=== PATIENT | male | born 1940 | race Caucasian/White ===

== ENCOUNTER 2016-06-10 13:00 | Emergency (ER) | payer MEDICARE ==
[2016-06-10 13:30] VITALS: RESP 18
--- NOTE | 2016-06-10 13:45 | ED ---
ENT HPI - General Chief complaint: ENT Stated complaint: FB in throat Time Seen by Provider: 06/10/16 13:28 Source: patient, RN notes reviewed Mode of arrival: ambulatory Limitations: no limitations - History of Present Illness Initial comments: This is a 76-year-old male who states he was flossing his teeth from the tip of the floss mechanism he was using broke off. He thought he got caught in his throat he coughed quite heavily in fact hard enough to cause a small amount of bleeding. He denies any sore throat difficulty swallowing shortness of breath chest pain or other symptoms. MD complaint: foreign body Review of Systems ROS Statement: Those systems with pertinent positive or pertinent negative responses have been documented in the HPI. ROS Other: All systems not noted in ROS Statement are negative. Past Medical History Past Medical History: No Reported History History of Any Multi-Drug Resistant Organisms: None Reported Additional Past Surgical History / Comment(s): Hernia repair. Past Psychological History: No Psychological Hx Reported Smoking Status: Never smoker Past Alcohol Use History: Daily Past Drug Use History: None Reported General Exam - General Exam Comments Initial Comments: This is a well-developed well-nourished awake alert oriented 3 male Limitations: no limitations General appearance: alert, in no apparent distress Head exam: Present: atraumatic, normocephalic, normal inspection Eye exam: Present: normal appearance ENT exam: Present: normal exam, mucous membranes moist Neck exam: Present: normal inspection, other (Stridor JVD or bruits). Absent: tenderness, meningismus, lymphadenopathy Respiratory exam: Present: normal lung sounds bilaterally. Absent: respiratory distress, wheezes, rales, rhonchi, stridor Extremities exam: Present: normal inspection, full ROM, normal capillary refill. Absent: tenderness, pedal edema, joint swelling, calf tenderness Back exam: Absent: tenderness Neurological exam: Present: alert, oriented X3, CN II-XII intact Psychiatric exam: Present: normal affect, normal mood Skin exam: Present: warm, dry, intact, normal color. Absent: rash Course Vital Signs 06/10/16 13:24 Temperature 97 F L Pulse Rate 78 Respiratory 18 Rate Blood Pressure 169/83 O2 Sat by Pulse 97 Oximetry - Reevaluation(s) Reevaluation #1: 06/10/16 13:49 I had reevaluated the patient he was still dyspneic. He is having some occasional PVCs this chest tightness has resolved however. Medical Decision Making - Medical Decision Making Reevaluation patient reveals a history of short of breath he will be admitted I did discuss the case with Dr. Kelly. Dr. Dinh/Barbra castillo will be consulted - Radiology Data Radiology results: report reviewed (I did review the imaging and reports no acute findings.), image reviewed Critical Care Time Critical Care Time: Yes Critical Care Time: 32 minutes of critical care time which includes initial monitoring of the patient with history physical lab and x-rays reevaluation the patient on several occasions discuss with the patient family regarding findings discussed with the admitting physician. Admission orders documentation the above. Disposition Clinical Impression: Chronic obstructive pulmonary disease with acute exacerbation, Exertional dyspnea Disposition: ADMITTED IP TO THIS [facility] Condition: Stable
--- NOTE | 2016-06-10 13:58 | XR ---
EXAMINATION TYPE: XR chest 2V DATE OF EXAM: 06/10/2016 1:54 PM COMPARISON: NONE HISTORY: Dental injury with cough. TECHNIQUE: Frontal and lateral views of the chest are obtained. FINDINGS: There is no focal air space opacity, pleural effusion, or pneumothorax seen. The cardiac silhouette size is within normal limits. A few Rina B lines are suspected in the periphery of the l eft lung. There is slightly ectatic thoracic aorta. The osseous structures are intact. IMPRESSION: Perhaps mild interstitial edema but no suspicious focal infiltrate.
--- NOTE | 2016-06-10 14:46 | ED ---
Medical Decision Making - Medical Decision Making I did review the x-rays no acute findings. I did a long discussion with the patient's the small foreign object should pass without difficulty. Patient is totally asymptomatic at this time. He does play the troponin he was advised to give his throat or respiratory day or so. He is return if any problems otherwise follow-up with his doctor. Disposition Clinical Impression: Foreign body ingestion Disposition: HOME SELF-CARE Condition: Good Instructions: Foreign Body Ingestion (ED) Referrals: Omari Ceja DO [Primary Care Provider] - 1-2 days
--- NOTE | 2016-06-10 14:48 | XR ---
EXAMINATION TYPE: XR soft tissue neck DATE OF EXAM ORDERED: 06/10/2016 1:54 PM HISTORY: Pain. COMPARISON: None. FINDINGS: Soft tissue views of the neck are normal. Prevertebral soft tissues are normal. The epiglo ttis is normal. There is degenerative disc disease and hypertrophic spondylosis within the spine. IMPRESSION: 1. NORMAL SOFT TISSUE VIEWS OF THE NECK. 2. DEGENERATIVE CHANGES IN THE CERVICAL SPINE.
[2016-06-10 15:11] VITALS: BP 126/69; PULSE 74; TEMP 97
[2016-06-10] MEDS ORDERED: IPRATROPIUM-ALBUTEROL 3 ML NEB INHALATION SCH (16:00)
[2016-06-10] MEDS ORDERED: methylPREDNISolone SOD SUCCI 125 MG/2 ML VIAL IV SCH (18:00)
== END 2016-06-10 15:10 | disposition home or self-care (01) ==
LOC: EC 13:00
DX: T18.9XXA Foreign body of alimentary tract, part unspecified, initial encounter (principal); X58.XXXA Exposure to other specified factors, initial encounter
CPT/HCPCS: 36415; 70360; 71020; 84484; 99283

== ENCOUNTER → 2017-01-24 | Outpatient (CLI) | payer MEDICARE ==
--- NOTE | 2017-01-24 15:00 | XR ---
EXAMINATION TYPE: XR lumbar spine 2 or 3V DATE OF EXAM: 01/24/2017 CLINICAL HISTORY: Chronic low back pain TECHNIQUE: Frontal and lateral images of the lumbar spine are obtained. COMPARISON: None FINDINGS: There are 5 lumbar type vertebral bodies identified. There is a mild rotatory levoscolioti c curvature of the lumbar spine with apex at L3-L4. Lumbar vertebral body heights maintain normal ali gnment. There is grade 1 anterolisthesis of L4 on L5 and mild retrolisthesis of L3 with respect to L4 . Multilevel intervertebral disc space during, endplate sclerosis, facet arthropathy and small anteri or osteophytes are noted most exaggerated at L3-L4 and L4-L5. The overlying soft tissue appears unre markable. There is incidental note of a 4 mm right renal calculus. IMPRESSION: 1. No acute fracture or dislocation is seen in the lumbar spine. 2. Mild rotatory levoscoliotic curvature of the lumbar spine. 3. Grade 1 anterolisthesis of L4 on L5 and slight retrolisthesis of L3 with respect to L4. 4. Mild multilevel degenerative disc disease of the lumbar spine. 5. Incidentally noted 4 mm right renal calculus.
--- NOTE | 2017-01-24 15:02 | XR ---
EXAMINATION TYPE: XR thoracic spine complete DATE OF EXAM: 01/24/2017 CLINICAL HISTORY: Chronic back pain. TECHNIQUE: Frontal, lateral, and swimmer's view of thoracic spine are obtained. COMPARISON: None. FINDINGS: Thoracic spine show satisfactory alignment without evidence of acute fracture or dislocatio n. Multilevel moderate degenerative disc disease is demonstrated as anterior flowing bridging osteoph ytes and multilevel intervertebral disc space narrowing. There is also mild generalized osseous demin eralization.. Visualized ribs are unremarkable. IMPRESSION: No acute fracture or malalignment is seen in the thoracic spine. Moderate multilevel dege nerative disc disease of the thoracic spine.
== END ==
LOC: RADXRMAIN 13:59
PROVIDERS: ATTEND Internal Medicine Geriatric Medicine
DX: M43.16 Spondylolisthesis, lumbar region (principal); M51.36 Other intervertebral disc degeneration, lumbar region; M41.86 Other forms of scoliosis, lumbar region; M51.34 Other intervertebral disc degeneration, thoracic region
CPT/HCPCS: 72072; 72100

== ENCOUNTER → 2018-01-09 | Outpatient (CLI) | payer MEDICARE ==
--- NOTE | 2018-01-09 13:52 | MR ---
EXAMINATION TYPE: MR brain wo con DATE OF EXAM: 01/09/2018 COMPARISON: NONE HISTORY: Dizziness and giddiness TECHNIQUE: Multiplanar, multisequence images of the brain and brainstem is performed without contrast. FINDINGS: Diffusion weighted images demonstrate no evidence of a recent infarct or other diffusion ab normality. There is no extra-axial fluid collection. There are few scattered areas of T2/FLAIR hyper intensity within the subcortical and periventricular white matter, more confluent within the perivent ricular white matter. There is also a punctate focus within the right cerebral peduncle. Findings are likely on the basis of chronic microangiopathy. No vasogenic edema is seen. The ventricular system a nd cisternal spaces are symmetrically prominent compatible with mild age-related volume loss. No felipe sependymal edema or hydrocephalus. Midline structures demonstrate normal morphology. The craniocervical junction appears within normal limits. The dural venous sinuses appear patent. The visualized sinuses display moderate mucosal thick ening within the frontal sinuses and mild within the ethmoid sinuses. Remaining visualized paranasal sinuses and mastoid air cells are well aerated. Globes are symmetric. No cerebellar pontine angle mas s is seen. Major intracranial flow voids are maintained. IMPRESSION: 1. No acute infarct, midline shift or mass effect. 2. Moderate mucosal thickening within the frontal sinuses and mild within the ethmoid sinuses relatin g to sinusitis. 3. Mild burden nonspecific white matter change given the patient's age, most commonly on the basis of chronic microangiopathy. There is mild age-related supratentorial and infratentorial volume loss.
== END | disposition home or self-care (01) ==
LOC: RADMRIMAIN 12:37
PROVIDERS: ATTEND Family Medicine
DX: R90.82 White matter disease, unspecified (principal); R90.89 Other abnormal findings on diagnostic imaging of central nervous system; R42 Dizziness and giddiness
CPT/HCPCS: 70551

== ENCOUNTER → 2018-06-20 | Outpatient (CLI) | payer MEDICARE ==
--- NOTE | 2018-06-20 13:54 | MR ---
EXAMINATION TYPE: MR lumbar spine wo/w con DATE OF EXAM: 06/20/2018 COMPARISON: Plain film 01/24/2017 HISTORY: Low back pain TECHNIQUE: Multiplanar, multisequence images of the lumbar spine were acquired utilizing [address] gadolinium contrast. T12-L1: Circumferential extension of endplate disc complex results in some foraminal encroachment gre ater on the left. There is mild anterior mass effect on the thecal sac. Facet arthropathy causes post erior lateral mass effect on the thecal sac. No significant central stenosis. L1-L2: Posterior broad-based disc bulge causes mild anterior mass effect on the thecal sac. No signif icant central stenosis. There may be some mild sided foraminal encroachment due to circumferential ex tension endplate disc complex. L2-L3: Posterior extension of endplate disc complex causes mild anterior mass effect on the thecal sa c. No significant central stenosis. Hypertrophic change of the ligamentum flavum greater on the right causes some posterior lateral mass effect on the thecal sac, circumferential extension endplate disc complex results in some foraminal encroachment greater on the. L3-L4: Posterior broad-based disc bulge causes mild anterior mass effect on the thecal sac, no signif icant central stenosis. Facet arthropathy with hypertrophic change of the ligamentum flavum causes po sterior lateral mass effect on the thecal sac, no significant foraminal encroachment on the right, so me mild left-sided foraminal encroachment is present. L4-L5: There is facet arthropathy change, hypertrophic ligamentum flavum causes some posterior latera l mass effect on the thecal sac and circumferential posterior disc bulge causes minimal anterior mass effect on the thecal sac, no significant central stenosis. Circumferential extension endplate disc c omplex results in some left-sided foraminal encroachment. L5-S1: Normal disc appearance without desiccation. No herniation, protrusion or disc bulging. No ca nal stenosis is present. Foramina are patent bilaterally. Lumbar segments are intact. No paraspinal masses are identified. Conus medullaris has a normal appe arance. There is a spinal curvature present convex left as on plain film. Multilevel spondylosis is p resent with endplate discogenic marrow signal change, loss of disc height signal compatible with disc desiccation and degenerative disc disease. Probable hemangioma present in the L3 vertebral body, T11 vertebral body. Anterolisthesis grade 1 L4-5 again seen, accentuated lordosis present centered at th is level. The inferior endplate of T11-12 shows Schmorl's node formation. No significant enhancement following contrast administration. The prostate is markedly enlarged and shows an inferior impression on the urinary bladder. IMPRESSION: Degenerative disc disease, scoliosis, facet arthropathy, multilevel foraminal encroachment. Marked pr ostatic enlargement. Additional findings above.
== END | disposition home or self-care (01) ==
LOC: RADMRIMAIN 10:02
PROVIDERS: ATTEND Internal Medicine Geriatric Medicine
DX: M51.26 Other intervertebral disc displacement, lumbar region (principal); M51.36 Other intervertebral disc degeneration, lumbar region; M46.96 Unspecified inflammatory spondylopathy, lumbar region; M41.86 Other forms of scoliosis, lumbar region; M46.95 Unspecified inflammatory spondylopathy, thoracolumbar region; M24.28 Disorder of ligament, vertebrae
CPT/HCPCS: 72158; A9585

== ENCOUNTER 2018-09-09 20:32 | Emergency (ER) | payer MEDICARE ==
[2018-09-09 20:47] VITALS: BP 151/83; PULSE 80; RESP 18; TEMP 98
[2018-09-09] MEDS ORDERED: DIPH,PERTUS(ACELL)TETVAC-LF 0.5 ML VIAL IM ONE (21:31)
--- NOTE | 2018-09-09 21:41 | ED ---
Wound/Laceration HPI - General Chief Complaint: Wound/Laceration Stated Complaint: Finger injury Time Seen by Provider: 09/09/18 20:47 Source: patient Mode of arrival: ambulatory Limitations: no limitations - History of Present Illness Initial Comments: Patient is a 78-year-old male presents to the emergency Department with complaints of a cut on his left middle finger x today. Patient states he was at a restaurant and went to move a metal chair and cut his finger on something underneath the chair. Patient is unsure of his last tetanus and they said the chair was really dirty. Patient has no other complaints at this time. Patient's bleeding is under control. Patient denies being on a blood thinner. - Related Data Home Medications Medication Instructions Recorded Confirmed Dutasteride [Avodart] 0.5 mg PO HS 06/10/16 06/10/16 Allergies Allergy/AdvReac Type Severity Reaction Status Date / Time No Known Allergies Allergy Verified 09/09/18 20:46 Review of Systems ROS Statement: Those systems with pertinent positive or pertinent negative responses have been documented in the HPI. ROS Other: All systems not noted in ROS Statement are negative. Past Medical History Past Medical History: No Reported History History of Any Multi-Drug Resistant Organisms: None Reported Additional Past Surgical History / Comment(s): Hernia repair. Past Psychological History: No Psychological Hx Reported Smoking Status: Never smoker Past Alcohol Use History: Daily Past Drug Use History: None Reported General Exam - General Exam Comments Initial Comments: GENERAL: Well-appearing, well-nourished and in no acute distress. HEAD: Atraumatic, normocephalic. EYES: Pupils equal round and reactive to light, extraocular movements intact, sclera anicteric, conjunctiva are normal. ENT: TMs normal, nares patent, oropharynx clear without exudates. Moist mucous membranes. NECK: Normal range of motion, supple without lymphadenopathy or JVD. LUNGS: Breath sounds clear to auscultation bilaterally and equal. No wheezes rales or rhonchi. HEART: Regular rate and rhythm without murmurs, rubs or gallops. ABDOMEN: Soft, nontender, normoactive bowel sounds. No guarding, no rebound. No masses appreciated. : Deferred EXTREMITIES: Normal range of motion, no pitting or edema. No clubbing or cyanosis. NEUROLOGICAL: Cranial nerves II through XII grossly intact. Normal speech, normal gait. PSYCH: Normal mood, normal affect. SKIN: Patient has small avulsion of the skin in the lateral aspect of the left middle finger next to the nail. Bleeding is controlled. Limitations: no limitations Course Vital Signs 09/09/18 20:43 Temperature 98.0 F Pulse Rate 80 Respiratory 18 Rate Blood Pressure 151/83 O2 Sat by Pulse 95 Oximetry Medical Decision Making - Medical Decision Making Patient is a 70-year-old male presenting to the ER after cutting his left middle finger on a metal chair at a restaurant. Patient is uncertain of his last tetanus. On exam patient has a small avulsion of the skin on the left middle finger. There is nothing to suture. Patient's wound was soaked and dressed. Patient was given tetanus vaccine. Patient will be discharged home. Patient given return parameters and watch for signs of infection. Pt was okay with this plan. Disposition Clinical Impression: Laceration of left index finger w/o foreign body w/o damage to nail Disposition: HOME SELF-CARE Condition: Stable Instructions (If sedation given, give patient instructions): Laceration (DC) Additional Instructions: Please return to the Emergency Department if symptoms worsen or any other concerns. Tetanus was given today. Watch for signs of infection such as redness, drainage from the area, fever. Is patient prescribed a controlled substance at d/c from ED?: No Referrals: Vaughn Bai MD [Primary Care Provider] - 1-2 days
== END 2018-09-09 21:59 | disposition home or self-care (01) ==
LOC: EC 20:32
DX: S61.213A Laceration without foreign body of left middle finger without damage to nail, initial encounter (principal); Z79.899 Other long term (current) drug therapy; Z23 Encounter for immunization; W26.8XXA Contact with other sharp object(s), not elsewhere classified, initial encounter; Y92.511 Restaurant or cafe as the place of occurrence of the external cause
CPT/HCPCS: 90471; 90715; 99282

== ENCOUNTER 2019-02-22 04:49 | Inpatient (IN) | payer MEDICARE ==
--- NOTE | 2019-02-22 05:21 | ED ---
Arrhythmia/Palpitations HPI - General Source: patient Mode of arrival: wheelchair Limitations: no limitations - History of Present Illness MD Complaint: "heart racing" Onset/Timin -: hour(s) Context: awoke with symptoms Associated Symptoms: diaphoresis <Jaun Perez - Last Filed: 02/22/19 05:51> <SteffanyGlenny Leona - Last Filed: 02/26/19 22:02> - General Chief Complaint: Arrhythmia/Palpitations Stated Complaint: Chest Pain Time Seen by Provider: 02/22/19 05:13 - History of Present Illness Initial Comments: This patient is 78-year-old man who presents to be evaluated after he woke from sleep with a feeling like his heart was racing. The patient states that on yesterday he thought he might have eaten something that didn't agree with him. He had a couple of episodes of vomiting at night before he had gone to bed. Patient states that he woke proximally an hour ago with a feeling like his heart was racing, he was a bit short of breath, and he was sweating. He states that the heart rate has subsequently started coming down, he does not have any shortness of breath and diaphoresis had resolved. He was not having any chest pain. In addition to the vomiting yesterday, patient did have some right-sided abdominal cramping which is moderate in intensity. He is declining analgesia at initial history and physical. (Jaun Perez) - Related Data Home Medications Medication Instructions Recorded Confirmed Acetaminophen Tab [Tylenol] 1,000 mg PO Q6HR PRN 02/22/19 02/22/19 Cyanocobalamin (Vitamin B-12) 1,000 mcg PO DAILY 02/22/19 02/22/19 [Vitamin B-12] Finasteride [Proscar] 5 mg PO HS 02/22/19 02/22/19 Pregabalin 100 mg PO BID 02/22/19 02/22/19 Previous Rx's Medication Instructions Recorded Metoprolol Tartrate [Lopressor] 25 mg PO BID #60 tab 02/24/19 Hydrocodone/Acetaminophen [Etters 1 tab PO Q6HR PRN 3 Days #12 tab 02/26/19 5-325] Allergies Allergy/AdvReac Type Severity Reaction Status Date / Time No Known Allergies Allergy Verified 02/22/19 09:13 Review of Systems ROS Other: All systems not noted in ROS Statement are negative. Constitutional: Denies: fever, chills Respiratory: Reports: as per HPI, dyspnea. Denies: cough, wheezes Cardiovascular: Reports: palpitations. Denies: chest pain, orthopnea, edema, syncope Gastrointestinal: Reports: as per HPI, abdominal pain, nausea, vomiting. Denies: diarrhea, constipation, hematemesis, melena, hematochezia Genitourinary: Denies: dysuria, hematuria Musculoskeletal: Denies: back pain Skin: Denies: rash Neurological: Denies: headache, weakness, numbness <Jaun Perez - Last Filed: 02/22/19 05:51> ROS Other: All systems not noted in ROS Statement are negative. <Glenny Jeter - Last Filed: 02/26/19 22:02> ROS Statement: Those systems with pertinent positive or pertinent negative responses have been documented in the HPI. Past Medical History Past Medical History: No Reported History History of Any Multi-Drug Resistant Organisms: None Reported Additional Past Surgical History / Comment(s): Hernia repair. Past Psychological History: No Psychological Hx Reported Smoking Status: Never smoker Past Alcohol Use History: Daily Past Drug Use History: None Reported <Jaun Perez - Last Filed: 02/22/19 05:51> General Exam Limitations: no limitations General appearance: alert, in no apparent distress Head exam: Present: atraumatic, normocephalic Eye exam: Present: normal appearance. Absent: scleral icterus, conjunctival injection ENT exam: Present: normal oropharynx Neck exam: Present: normal inspection Respiratory exam: Present: normal lung sounds bilaterally. Absent: respiratory distress, wheezes, rales, rhonchi, stridor Cardiovascular Exam: Present: regular rate, normal rhythm, normal heart sounds. Absent: systolic murmur, diastolic murmur, rubs, gallop GI/Abdominal exam: Present: soft. Absent: distended, tenderness, guarding, rebound, rigid, mass Extremities exam: Present: normal inspection, normal capillary refill. Absent: pedal edema, calf tenderness Back exam: Present: normal inspection. Absent: CVA tenderness (R), CVA tenderness (L) Neurological exam: Present: alert Skin exam: Present: warm, dry, intact, normal color. Absent: rash <Jaun Perez - Last Filed: 02/22/19 05:51> Course Vital Signs 02/22/19 02/22/19 02/22/19 04:51 05:09 06:00 Temperature 98.4 F Pulse Rate 123 H 120 H 113 H Respiratory 18 18 20 Rate Blood Pressure 134/94 127/83 129/77 O2 Sat by Pulse 99 98 97 Oximetry 02/22/19 07:00 Temperature Pulse Rate 106 H Respiratory 12 Rate Blood Pressure 132/87 O2 Sat by Pulse 96 Oximetry EKG Findings - EKG Comments: EKG Findings:: Possible old inferior infarct. - EKG Results: EKG: interpreted by ERMD, sinus rhythm, normal axis, normal QRS, normal ST/T - Blocks, [place], Hypertrophy, ST Abn: AV and intraventricular conduction: 1 AV block <Jaun Perez - Last Filed: 02/22/19 05:51> Medical Decision Making - Lab Data Result diagrams: 02/22/19 05:05 02/22/19 05:05 <Jaun Perez - Last Filed: 02/22/19 05:51> - Lab Data Result diagrams: 02/25/19 06:36 02/25/19 06:36 <Glenny Jeter - Last Filed: 02/26/19 22:02> - Medical Decision Making The patient was signed out to me from Dr. Carlson. I discussed the results of the laboratory studies with the patient. Gallbladder ultrasound was performed which demonstrates acute cholecystitis. There is cholecystic fluid as well as thickening of the gallbladder wall and biliary sludge. I discussed these results with the patient. A call discuss case with Dr. Ahuja who accepted admission. The patient was placed on Rocephin and blood cultures were obtained. Bridging orders were placed and the patient was taken to the floor (Glenny Jeter) - Lab Data Lab Results 02/22/19 02/22/19 02/22/19 Range/Units 05:05 05:05 05:05 WBC 11.2 H (3.8-10.6) k/uL RBC 5.23 (4.30-5.90) m/uL Hgb 16.1 (13.0-17.5) gm/dL Hct 48.0 (39.0-53.0) % MCV 91.8 (80.0-100.0) fL MCH 30.7 (25.0-35.0) pg MCHC 33.5 (31.0-37.0) g/dL RDW 12.4 (11.5-15.5) % Plt Count 183 (150-450) k/uL Neutrophils % 89 % Lymphocytes % 5 % Monocytes % 4 % Eosinophils % 1 % Basophils % 0 % Neutrophils # 10.0 H (1.3-7.7) k/uL Lymphocytes # 0.6 L (1.0-4.8) k/uL Monocytes # 0.5 (0-1.0) k/uL Eosinophils # 0.1 (0-0.7) k/uL Basophils # 0.0 (0-0.2) k/uL PT 10.4 (9.0-12.0) sec INR 1.0 (<1.2) APTT 24.5 (22.0-30.0) sec Sodium 139 (137-145) mmol/L Potassium 4.2 (3.5-5.1) mmol/L Chloride 105 (98-107) mmol/L Carbon Dioxide 23 (22-30) mmol/L Anion Gap 11 mmol/L BUN 16 (9-20) mg/dL Creatinine 0.96 (0.66-1.25) mg/dL Est GFR (CKD-EPI)AfAm 88 (>60 ml/min/1.73 sqM) Est GFR (CKD-EPI)NonAf 76 (>60 ml/min/1.73 sqM) Glucose 168 H (74-99) mg/dL Calcium 9.7 (8.4-10.2) mg/dL Magnesium 1.6 (1.6-2.3) mg/dL Total Bilirubin 0.8 (0.2-1.3) mg/dL AST 32 (17-59) U/L ALT 51 (21-72) U/L Alkaline Phosphatase 62 (38-126) U/L Troponin I (0.000-0.034) ng/mL NT-Pro-B Natriuret Pep pg/mL Total Protein 7.5 (6.3-8.2) g/dL Albumin 4.5 (3.5-5.0) g/dL TSH 1.060 (0.465-4.680) mIU/L Urine Color Urine Appearance (Clear) Urine pH (5.0-8.0) Ur Specific [place] (1.001-1.035) Urine Protein (Negative) Urine Glucose (UA) (Negative) Urine Ketones (Negative) Urine Blood (Negative) Urine Nitrite (Negative) Urine Bilirubin (Negative) Urine Urobilinogen (<2.0) mg/dL Ur Leukocyte Esterase (Negative) Urine RBC (0-5) /hpf Urine WBC (0-5) /hpf Ur Squamous Epith Cells (0-4) /hpf Hyaline Casts (0-2) /lpf Urine Mucus (None) /hpf 02/22/19 02/22/19 02/22/19 Range/Units 05:05 05:05 05:25 WBC (3.8-10.6) k/uL RBC (4.30-5.90) m/uL Hgb (13.0-17.5) gm/dL Hct (39.0-53.0) % MCV (80.0-100.0) fL MCH (25.0-35.0) pg MCHC (31.0-37.0) g/dL RDW (11.5-15.5) % Plt Count (150-450) k/uL Neutrophils % % Lymphocytes % % Monocytes % % Eosinophils % % Basophils % % Neutrophils # (1.3-7.7) k/uL Lymphocytes # (1.0-4.8) k/uL Monocytes # (0-1.0) k/uL Eosinophils # (0-0.7) k/uL Basophils # (0-0.2) k/uL PT (9.0-12.0) sec INR (<1.2) APTT (22.0-30.0) sec Sodium (137-145) mmol/L Potassium (3.5-5.1) mmol/L Chloride (98-107) mmol/L Carbon Dioxide (22-30) mmol/L Anion Gap mmol/L BUN (9-20) mg/dL Creatinine (0.66-1.25) mg/dL Est GFR (CKD-EPI)AfAm (>60 ml/min/1.73 sqM) Est GFR (CKD-EPI)NonAf (>60 ml/min/1.73 sqM) Glucose (74-99) mg/dL Calcium (8.4-10.2) mg/dL Magnesium (1.6-2.3) mg/dL Total Bilirubin (0.2-1.3) mg/dL AST (17-59) U/L ALT (21-72) U/L Alkaline Phosphatase (38-126) U/L Troponin I <0.012 (0.000-0.034) ng/mL NT-Pro-B Natriuret Pep 116 pg/mL Total Protein (6.3-8.2) g/dL Albumin (3.5-5.0) g/dL TSH (0.465-4.680) mIU/L Urine Color Yellow Urine Appearance Clear (Clear) Urine pH 5.5 (5.0-8.0) Ur Specific [place] 1.030 (1.001-1.035) Urine Protein Trace H (Negative) Urine Glucose (UA) Negative (Negative) Urine Ketones Negative (Negative) Urine Blood Small H (Negative) Urine Nitrite Negative (Negative) Urine Bilirubin Negative (Negative) Urine Urobilinogen <2.0 (<2.0) mg/dL Ur Leukocyte Esterase Negative (Negative) Urine RBC 3 (0-5) /hpf Urine WBC 1 (0-5) /hpf Ur Squamous Epith Cells <1 (0-4) /hpf Hyaline Casts 114 H (0-2) /lpf Urine Mucus Many H (None) /hpf Disposition <Jaun Perez - Last Filed: 02/22/19 05:51> Is patient prescribed a controlled substance at d/c from ED?: No Decision to Admit Reason: Admit from EC Decision Date: 02/22/19 Decision Time: 08:08 <Glenny Jeter - Last Filed: 02/26/19 22:02> Clinical Impression: Acute cholecystitis Disposition: ADMITTED IP TO THIS [facility] Condition: Stable
[2019-02-22 05:22] LABS: Basophils % (A) 0 %; Eosinophils # (A) 0.1 k/uL (0-0.7); Eosinophils % (A) 1 %; HGB 16.1 gm/dL (13.0-17.5); Lymphocytes # (A) 0.6 k/uL (1.0-4.8); Lymphocytes % (A) 5 %; MCH 30.7 pg (25.0-35.0); MCHC 33.5 g/dL (31.0-37.0); MCV 91.8 fL (80.0-100.0); Mean Platelet Volume 6.5; Monocytes # (A) 0.5 k/uL (0-1.0); Monocytes % (A) 4 %; Neutrophils % (A) 89 %; Platelet Count 183 k/uL (150-450); RBC 5.23 m/uL (4.30-5.90); RDW 12.4 % (11.5-15.5); WBC 11.2 k/uL (3.8-10.6)
[2019-02-22 05:31] LABS: Albumin 4.5 g/dL (3.5-5.0); Calcium 9.7 mg/dL (8.4-10.2); Magnesium 1.6 mg/dL (1.6-2.3); Potassium 4.2 mmol/L (3.5-5.1); Total Bilirubin 0.8 mg/dL (0.2-1.3); Total Protein 7.5 g/dL (6.3-8.2)
[2019-02-22 05:40] LABS: Prothrombin Time 10.4 sec (9.0-12.0)
[2019-02-22 05:41] LABS: Partial Thromboplastin Time 24.5 sec (22.0-30.0)
[2019-02-22 05:43] LABS: Appearance,Urine Clear (Clear); Bilirubin,Urine Negative (Negative); Blood,Urine Small (Negative); Color,Urine Yellow; Glucose,Urine (UA) Negative (Negative); Hyaline Casts,Urine 114 /lpf (0-2); Ketones,Urine Negative (Negative); Leukocyte Esterase,Urine Negative (Negative); Mucus,Urine Many /hpf; Nitrite,Urine Negative (Negative); PH, Urine 5.5 (5.0-8.0); Protein,Urine Trace (Negative); RBC,Urine 3 /hpf (0-5); Squamous Epithelial Cell,Urine <1 /hpf (0-4); Urobilinogen,Urine <2.0 mg/dL (<2.0); WBC,Urine 1 /hpf (0-5)
--- NOTE | 2019-02-22 05:58 | XR ---
EXAMINATION TYPE: XR chest 1V portable DATE OF EXAM: 02/22/2019 COMPARISON: 06/10/2016 HISTORY: Cough TECHNIQUE: Single frontal view of the chest is obtained. FINDINGS: There is no heart failure nor confluent pneumonic infiltrate. Costophrenic angles are yasir r. There is no pleural effusion. There are chest leads. IMPRESSION: No active cardiopulmonary disease. No significant change.
--- NOTE | 2019-02-22 06:04 | CT ---
EXAMINATION TYPE: CT abdomen pelvis wo con DATE OF EXAM: 02/22/2019 COMPARISON: None HISTORY: RUQ pain FINDINGS: lung bases are clear. There is no pleural effusion. Heart size is normal. Stomach appears normal. Liver and spleen appear normal. Bile ducts are not dilated. Gallbladder is salvatore rderline dilated and measures 4.5 cm in diameter. There is minimal edema around the gallbladder. Panc reas appears normal. There is no adrenal mass. Kidneys have normal size. There is no hydronephrosis. There is 7 mm calculu s posterior left kidney. There are other smaller left renal calculi. There is no retroperitoneal rogelio opathy. There is markedly enlarged prostate that measures 7 cm. There are sigmoid diverticula. There is no sign of diverticulitis. The appendix appears normal. There is no ascites. There is no inguinal hernia. There is no free air. There is no mesenteric edema. Ther e is no evidence of bowel obstruction. Lumbar vertebra have normal alignment. Disc spaces are fairly normal. There is no compression fractur e. Bony pelvis is intact. There is some coarse trabeculae in the T12 vertebra consistent with hemangi christiano. There is spinal stenosis at L4-5 due to posterior calcified disc herniation and facet arthropath y. IMPRESSION: There is evidence of gallbladder wall edema suggestive of cholecystitis. No dilated ducts. Nonobstructing left renal calculi. Markedly enlarged prostate. CT DLP: 932.2 mGycm Automated exposure control for dose reduction was used.
--- NOTE | 2019-02-22 07:39 | US ---
EXAMINATION TYPE: US abdomen limited DATE OF EXAM: 02/22/2019 COMPARISON: CT 2019 CLINICAL HISTORY: attention RUQ. R/O Cholecystitis. RUQ pain and N/V x 2 days EXAM MEASUREMENTS: Liver Length: 17.9 cm Gallbladder Wall: 0.4 cm CBD: 0.5 cm Right Kidney: 11.0 x 5.3 x 4.8 cm Difficult and limited study due to patient body habitus Pancreas: obscured by overlying midline bowel gas Liver: measures in upper limits of normal, attenuating, heterogeneous, decreased visualization of ve ssels Gallbladder: Upper limits of normal measuring 4.3cm in width, wall thickened at 0.4cm, low level ech oes seen within dependant portion. Questionable trace pericholecystic fluid versus focal fatty sparin g. Evidence for sonographic Dockery's sign: no CBD: visualized portions wnl, limited by overlying bowel gas Right Kidney: no hydronephrosis or masses seen IMPRESSION: 1. HIDA scan is recommended as there are some findings of acute cholecystitis such as questionable pe richolecystic fluid versus focal fatty sparing of the liver and gallbladder wall thickening with bili jasen sludge however the common bile duct is within normal limits and there is no evidence of a sonogra phic Dockery's sign. 2. Hepatic steatosis. Upper limits of normal size of the liver. 3. Obscuration of the pancreas by overlying bowel gas.
[2019-02-22] MEDS ORDERED: cefTRIAXone IN SWFI 1,000 MG/10 ML SYRINGE IVP STA (07:46)
[2019-02-22] MEDS ORDERED: NALOXONE 0.4 MG/ML 1 ML VIAL IV PRN (08:35)
[2019-02-22] MEDS ORDERED: ONDANSETRON 4 MG/2 ML VIAL IVP PRN (08:35)
[2019-02-22] MEDS: SODIUM CHLORIDE 0.9% 1,000 ML IV SCH ×2 (09:34→19:40)
--- NOTE | 2019-02-22 13:21 | P.CONS ---
History of Present Illness - Reason for Consult Consult date: 02/22/19 Medical management Requesting physician: Mark Ahuja - Chief Complaint Abdominal pain, acute cholecystitis, palpitation, BPH - History of Present Illness 78-year-old male one of my office patient with past medical history of kidney stone, BPH, skin cancer and mildly elevated blood pressure who apparently did not feel well yesterday had the large dinner end up going to orthodox with his friend developed to have significant abdominal pain with nausea and vomiting after he made it home and subtle down the continue having nausea vomiting 2 then developed to have significant palpitation and rapid pulse with mild cold sweat and ended up asking his to drive him to the emergency department at [facility] where he was seen and evaluated surprisingly his EKG showed sinus tachycardia with no other acute component was negative patient CAT scan of the abdomen for his nausea vomiting came back with significant abnormality consistent with acute cholecystitis and possible cholelithiasis. Patient ended up having an ultrasound showed questionable for cholelithiasis and cholecystitis patient was admitted to Dr. Ahuja service Gen. surgery and he'll be going for gallbladder surgery today or tomorrow. Review of Systems CONSTITUTIONAL: Well-developed no acute respiratory distress. EYES: No icterus sclerae, no conjunctivitis. EARS, NOSE, MOUTH, THROAT, and FACE: No sore throat, lymphadenopathy, carotid bruits or deformity. RESPIRATORY: No SOB cough or wheezes. CARDIOVASCULAR: No CP, Palpitation, PND, Orthopnea, or angina. Mild tachycardia GASTROINTESTINAL: Abdominal pain with nausea and vomiting. GENITOURINARY: Negative for Hematuria or UTI, no kidney stones. INTEGUMENT/BREAST: Negative for any muscular injury with mild osteoarthritis.. HEMATOLOGIC/LYMPHATIC: Negative for bleed or purpura. MUSCULOSKELTAL: Negative for Myalgia or arthralgia. NEURLOGICAL: No LOC, Sz or syncope, blurred vision dizziness or abnormality.. BEHAVIORAL/PSYCH: Negative. ENDOCRINE: Negative. Past Medical History Past Medical History: Cancer, Osteoarthritis (OA), Pneumonia, Prostate Disorder, Renal Disease Additional Past Medical History / Comment(s): Spinal stenosis with neuropathy bilateral feet, chronic low back pain, BPH, kidney surgery for stones, skin cancer removed from L cheek. History of Any Multi-Drug Resistant Organisms: None Reported Past Surgical History: Hernia Repair, Tonsillectomy Additional Past Surgical History / Comment(s): Lithotripsy, bilateral inguinal hernia repairs, colonoscopies, L cheek skin cancer removal Past Anesthesia/Blood Transfusion Reactions: No Reported Reaction Additional Past Anesthesia/Blood Transfusion Reaction / Comm: Pt has clausterphobia Smoking Status: Former smoker - Past Family History Father Family Medical History: No Reported History Additional Family Medical History / Comment(s): Father comitted suicide at the age of 75yrs. Mother Family Medical History: No Reported History Additional Family Medical History / Comment(s): Mother was healthy and lived to be 90yrs. Medications and Allergies Home Medications Medication Instructions Recorded Confirmed Type Acetaminophen Tab [Tylenol Tab] 1,000 mg PO Q6HR PRN 02/22/19 02/22/19 History Cyanocobalamin (Vitamin B-12) 1,000 mcg PO DAILY 02/22/19 02/22/19 History [Vitamin B-12] Finasteride [Proscar] 5 mg PO HS 02/22/19 02/22/19 History Pregabalin 100 mg PO BID 02/22/19 02/22/19 History Allergies Allergy/AdvReac Type Severity Reaction Status Date / Time No Known Allergies Allergy Verified 02/22/19 09:13 Physical Exam Vitals: Vital Signs Temp Pulse Pulse Resp BP BP Pulse Ox 02/22/19 09:53 97.8 F 107 H 18 121/81 98 02/22/19 09:42 98.1 F 86 18 136/81 02/22/19 07:00 106 H 12 132/87 96 02/22/19 06:00 113 H 20 129/77 97 02/22/19 05:09 120 H 18 127/83 98 02/22/19 04:51 98.4 F 123 H 18 134/94 99 Intake and Output 02/21/19 02/22/19 02/22/19 22:59 06:59 14:59 Other: Weight 90.718 kg 90.718 kg General Appearance: Alert, cooperative, no distress, appears stated age. Neck HEENT: Supple, no lymphadenopathy, no thyroid enlargement, no carotid bruits. Lungs: Clear to auscultation without crackles or wheezes no rhonchi, no deformity. Chest Wall: Chest wall normal expansion with deep inspiration no tenderness and no deformity was found on exam, no costochondral pain or discomfort. Heart: Regular rate and rhythm, S1, S2 normal, no murmur, rub or gallop. Normal sinus rhythm with mild tachycardia. Back: Symmetric, no curvature, ROM normal, no CVA tenderness. Abdomen: Soft positive bowel sounds like tenderness in the right upper quadrant area and mid epigastric area no rebound or rigidity. Extremities: Extremities normal, atraumatic, no cyanosis or edema. Pulses: 2+ and symmetric. Skin: Skin color, texture, tugor normal, no rashes or lesions. Neurologic: Alert oriented x3 cranial nerves II through XII intact, no motor deficit, no abnormal balance or gait. Results CBC & Chem 7: 02/22/19 05:05 12 05:05 Labs: Abnormal Lab Results - Last 24 Hours (Table) 02/22/19 02/22/19 02/22/19 Range/Units 05:05 05:05 05:25 WBC 11.2 H (3.8-10.6) k/uL Neutrophils # 10.0 H (1.3-7.7) k/uL Lymphocytes # 0.6 L (1.0-4.8) k/uL Glucose 168 H (74-99) mg/dL Urine Protein Trace H (Negative) Urine Blood Small H (Negative) Hyaline Casts 114 H (0-2) /lpf Urine Mucus Many H (None) /hpf Assessment and Plan Plan: 1 abdominal pain: Most likely acute cholecystitis with possibility of gallstone pass in the common duct cause more pain discomfort in the abdominal pain with nausea and vomiting symptoms are slightly but better continue conservative management, patient seen general surgery for possible be going for gallbladder surgery in the afternoon today. 2 acute cholecystitis with possible cholelithiasis: Had CT and ultrasound were positive patient be going for surgery. 3 chronic neuropathy and chronic lower back pain has been on Lyrica doing well with it resume medication after surgery. 4 BPH with no sign of urinary retention patient remain on Proscar 5 mg daily continue medication. GI prophylaxis/GERD: Will add pantoprazole 40 mg daily. 6 DVT prophylaxis: Venodyne boots and knee-high DEENA hose and after surgery will use subcu heparin. Next CODE STATUS: Full code. Dr. Ahuja thank you much for the consult I can be any further help to please let me know
--- NOTE | 2019-02-22 14:33 | P.GSHP ---
<Teodora Dougherty A - Last Filed: 02/22/19 14:26> History of Present Illness H&P Date: 02/22/19 CHIEF COMPLAINT: Abdominal pain HISTORY OF PRESENT ILLNESS: 78-year-old male who presented to the emergency room with a chief complaint of abdominal pain. Patient reports he went out to [facility] yesterday and had a cheese omelette. Shortly afterwards he began having abdominal pain. Pain is localized to right upper quadrant. He also reports having nausea and vomiting yesterday. Patient states he woke up this morning and still felt pain in his abdomen. Denies diarrhea or constipation. Denies fever or chills. PAST MEDICAL HISTORY: See list. PAST SURGICAL HISTORY: See list. SOCIAL HISTORY: No illicit drug use. REVIEW OF SYSTEMS: CONSTITUTIONAL: Denies fever or chills. HEENT: Denies blurred vision, vision changes, or eye pain. Denies hemoptysis CARDIOVASCULAR: Denies chest pain or pressure. RESPIRATORY: No shortness of breath. GASTROINTESTINAL: Refer to [facility] for pertinent findings HEMATOLOGIC: Denies bleeding disorders. GENITOURINARY: Denies any blood in urine. SKIN: Denies pruitis. Denies rash. PHYSICAL EXAM: VITAL SIGNS: Reviewed. GENERAL: Well-developed in no acute distress. HEENT: No sclera icterus. Extraocular movements grossly intact. Moist buccal mucosa. Head is atraumatic, normocephalic. ABDOMEN: Soft. Nondistended. Tenderness with palpation to right upper quadrant. NEUROLOGIC: Alert and oriented. Cranial nerves II through XII grossly intact. LABORATORY DATA: WBC 11.2. Hemoglobin 16.1. Platelet count 183. Bilirubin 0.8. AST 32. ALT 51. IMAGIN. CT abdomen and pelvis: evidence of gallbladder wall edema suggestive of cholecystitis. No dilated ducts. 2. Abdominal ultrasound: Gallbladder measures upper limits of normal. 4.3 cm in width. Gallbladder wall thickening at 0.4 cm. Questionable trace pericholecystic fluid. ASSESSMENT: 1. Abdominal pain, nausea, vomiting 2. Acute cholecystitis PLAN: 1. Clear liquid diet. Nothing by mouth after midnight 2. Monitor WBC. Continue IV Zosyn 3. Patient to undergo laparoscopic cholecystectomy tomorrow with Dr. Ahuja Nurse practitioner note has been reviewed by physician. Signing provider agrees with the documented findings, assessment, and plan of care. Past Medical History Past Medical History: Cancer, Osteoarthritis (OA), Pneumonia, Prostate Disorder, Renal Disease Additional Past Medical History / Comment(s): Spinal stenosis with neuropathy bilateral feet, chronic low back pain, BPH, kidney surgery for stones, skin cancer removed from L cheek. History of Any Multi-Drug Resistant Organisms: None Reported Past Surgical History: Hernia Repair, Tonsillectomy Additional Past Surgical History / Comment(s): Lithotripsy, bilateral inguinal hernia repairs, colonoscopies, L cheek skin cancer removal Past Anesthesia/Blood Transfusion Reactions: No Reported Reaction Additional Past Anesthesia/Blood Transfusion Reaction / Comment(s): Pt has clausterphobia Smoking Status: Former smoker - Past Family History Father Family Medical History: No Reported History Additional Family Medical History / Comment(s): Father comitted suicide at the age of 75yrs. Mother Family Medical History: No Reported History Additional Family Medical History / Comment(s): Mother was healthy and lived to be 90yrs. Medications and Allergies Home Medications Medication Instructions Recorded Confirmed Type Acetaminophen Tab [Tylenol Tab] 1,000 mg PO Q6HR PRN 02/22/19 02/22/19 History Cyanocobalamin (Vitamin B-12) 1,000 mcg PO DAILY 02/22/19 02/22/19 History [Vitamin B-12] Finasteride [Proscar] 5 mg PO HS 02/22/19 02/22/19 History Pregabalin 100 mg PO BID 02/22/19 02/22/19 History Allergies Allergy/AdvReac Type Severity Reaction Status Date / Time No Known Allergies Allergy Verified 02/22/19 09:13 Surgical - Exam Vital Signs Temp Pulse Resp BP Pulse Ox 98.4 F 123 H 18 134/94 99 02/22/19 04:51 02/22/19 04:51 02/22/19 04:51 02/22/19 04:51 02/22/19 04:51 Results - Labs 02/22/19 05:05 02/22/19 05:05 Abnormal Lab Results - Last 24 Hours (Table) 02/22/19 02/22/19 02/22/19 Range/Units 05:05 05:05 05:25 WBC 11.2 H (3.8-10.6) k/uL Neutrophils # 10.0 H (1.3-7.7) k/uL Lymphocytes # 0.6 L (1.0-4.8) k/uL Glucose 168 H (74-99) mg/dL Urine Protein Trace H (Negative) Urine Blood Small H (Negative) Hyaline Casts 114 H (0-2) /lpf Urine Mucus Many H (None) /hpf Diabetes panel 02/22/19 Range/Units 05:05 Sodium 139 (137-145) mmol/L Potassium 4.2 (3.5-5.1) mmol/L Chloride 105 (98-107) mmol/L Carbon Dioxide 23 (22-30) mmol/L BUN 16 (9-20) mg/dL Creatinine 0.96 (0.66-1.25) mg/dL Glucose 168 H (74-99) mg/dL Calcium 9.7 (8.4-10.2) mg/dL AST 32 (17-59) U/L ALT 51 (21-72) U/L Alkaline Phosphatase 62 (38-126) U/L Total Protein 7.5 (6.3-8.2) g/dL Albumin 4.5 (3.5-5.0) g/dL Thyroid panel 02/22/19 Range/Units 05:05 TSH 1.060 (0.465-4.680) mIU/L Calcium panel 02/22/19 Range/Units 05:05 Calcium 9.7 (8.4-10.2) mg/dL Albumin 4.5 (3.5-5.0) g/dL Pituitary panel 02/22/19 Range/Units 05:05 Sodium 139 (137-145) mmol/L Potassium 4.2 (3.5-5.1) mmol/L Chloride 105 (98-107) mmol/L Carbon Dioxide 23 (22-30) mmol/L BUN 16 (9-20) mg/dL Creatinine 0.96 (0.66-1.25) mg/dL Glucose 168 H (74-99) mg/dL Calcium 9.7 (8.4-10.2) mg/dL TSH 1.060 (0.465-4.680) mIU/L Adrenal panel 02/22/19 Range/Units 05:05 Sodium 139 (137-145) mmol/L Potassium 4.2 (3.5-5.1) mmol/L Chloride 105 (98-107) mmol/L Carbon Dioxide 23 (22-30) mmol/L BUN 16 (9-20) mg/dL Creatinine 0.96 (0.66-1.25) mg/dL Glucose 168 H (74-99) mg/dL Calcium 9.7 (8.4-10.2) mg/dL Total Bilirubin 0.8 (0.2-1.3) mg/dL AST 32 (17-59) U/L ALT 51 (21-72) U/L Alkaline Phosphatase 62 (38-126) U/L Total Protein 7.5 (6.3-8.2) g/dL Albumin 4.5 (3.5-5.0) g/dL <Mark Ahuja - Last Filed: 02/23/19 11:56> Surgical - Exam Vital Signs Temp Pulse Resp BP Pulse Ox 98.4 F 123 H 18 134/94 99 02/22/19 04:51 02/22/19 04:51 02/22/19 04:51 02/22/19 04:51 02/22/19 04:51 Results - Labs 02/22/19 05:05 02/22/19 05:05 Microbiology - Last 24 Hours (Table) 02/22/19 09:32 Blood Culture - Preliminary Blood No Growth after 24 hours Assessment and Plan Plan: Acute cholecystitis. Patient will undergo laparoscopic ostectomy in the a.m.
[2019-02-22] MEDS: PIPERACILLIN-TAZOBACTAM 3.375 GM in SODIUM CHLORIDE 0.9% 100 ML IVPB SCH ×2 (17:30→23:49)
[2019-02-22] MEDS: HEPARIN SODIUM,PORCINE 5,000 UNIT/ML 1 ML VIAL SQ SCH (17:30)
[2019-02-22] MEDS: MORPHINE SULFATE 4 MG/ML SYRINGE IV PRN ×2 (17:38→22:52)
[2019-02-22] MEDS: ONDANSETRON 4 MG/2 ML VIAL IVP PRN (22:45)
[2019-02-23] MEDS: HEPARIN SODIUM,PORCINE 5,000 UNIT/ML 1 ML VIAL SQ SCH ×4 (00:12→23:56)
[2019-02-23] MEDS: MORPHINE SULFATE 4 MG/ML SYRINGE IV PRN ×2 (03:44→08:04)
[2019-02-23] MEDS: PANTOPRAZOLE 40 MG/10 ML VIAL IVP SCH (08:04)
[2019-02-23] MEDS: PIPERACILLIN-TAZOBACTAM 3.375 GM in SODIUM CHLORIDE 0.9% 100 ML IVPB SCH ×3 (08:05→23:57)
--- NOTE | 2019-02-23 08:48 | ECHOF ---
Referral Reason:LV function, felt heart racing MEASUREMENTS -------- HEIGHT: 172.7 cm WEIGHT: 90.7 kg BP: RVIDd: 3.3 cm (< 3.3) IVSd: 1.4 cm (0.6 - 1.1) LVIDd: 3.4 cm (3.9 - 5.3) LVPWd: 1.4 cm (0.6 - 1.1) IVSs: 1.7 cm LVIDs: 2.2 cm LVPWs: 1.7 cm LA Diam: 3.7 cm (2.7 - 3.8) LAESV Index (A-L): 14.14 ml/m Ao Diam: 3.7 cm (2.0 - 3.7) AV Cusp: 1.7 cm (1.5 - 2.6) MV EXCURSION: 8.677 mm (> 18.000) MV EF SLOPE: 148 mm/s (70 - 150) EPSS: 0.3 cm MV E Toño: 0.94 m/s MV DecT: 139 ms MV A Toño: 0.48 m/s MV E/A Ratio: 1.94 RAP: 5.00 mmHg RVSP: 25.88 mmHg FINDINGS -------- Resting tachycardia (HR>100bpm). This was a technically adequate study. The left ventricular size is normal. There is moderate concentric left ventricular hypertrophy. L eft ventricular systolic function is hyperdynamic with an estimated EF of >70%. The right ventricle is mildly enlarged. Normal LA size by volume 22+/-6 ml/m2. The right atrium is normal in size. Interatrial and interventricular septum intact. Aortic valve is trileaflet and is mildly thickened. Trace amount of aortic regurgitation. The mitral valve is normal. Mild tricuspid regurgitation present. Right ventricular systolic pressure is normal at < 35 mmHg. The pulmonic valve was not well visualized. The aortic root size is normal. IVC Not well visulized. There is no pericardial effusion. CONCLUSIONS -------- 1. Resting tachycardia (HR>100bpm). 2. This was a technically adequate study. 3. The left ventricular size is normal. 4. There is moderate concentric left ventricular hypertrophy. 5. Left ventricular systolic function is hyperdynamic with an estimated EF of >70%. 6. The right ventricle is mildly enlarged. 7. Normal LA size by volume 22+/-6 ml/m2. 8. The right atrium is normal in size. 9. Interatrial and interventricular septum intact. 10. Aortic valve is trileaflet and is mildly thickened. 11. Trace amount of aortic regurgitation. 12. The mitral valve is normal. 13. Mild tricuspid regurgitation present. 14. Right ventricular systolic pressure is normal at < 35 mmHg. 15. The pulmonic valve was not well visualized. 16. The aortic root size is normal. 17. IVC Not well visulized. 18. There is no pericardial effusion. GRAINER MACHINE: Una Webb RDCS
[2019-02-23] MEDS: METOPROLOL TARTRATE 25 MG TAB PO SCH ×2 (10:53→20:09)
[2019-02-23] MEDS ORDERED: IV FLUID CONTINUATION 1,000 ML IV ONE (11:08)
[2019-02-23] MEDS: ONDANSETRON 4 MG/2 ML VIAL IVP PRN (11:09)
[2019-02-23] MEDS ORDERED: MIDAZOLAM 2 MG/2 ML VIAL IVP ONE (11:54)
[2019-02-23] MEDS ORDERED: PHENYLEPHRINE-0.9% NACL SYG 1 MG/10 ML SYRINGE ONE (12:23)
[2019-02-23] MEDS ORDERED: fentaNYL (PF) 50 MCG/ML 2 ML AMP ONE (12:23)
[2019-02-23] MEDS ORDERED: LIDOCAINE 1% INJ 10MG/ML (20 ML MDV) ONE (12:23)
[2019-02-23] MEDS ORDERED: NEOSTIGMINE 1 MG/ML 10 ML VIAL ONE (12:23)
[2019-02-23] MEDS ORDERED: SUCCINYLCHOLINE CHLORIDE 100 MG/5 ML SYR IV ONE (12:23)
[2019-02-23] MEDS ORDERED: ROCURONIUM BROMIDE 10 MG/ML 10 ML VIAL IV ONE (12:23)
[2019-02-23] MEDS ORDERED: GLYCOPYRROLATE 0.2 MG/ML 2 ML VIAL ONE (12:23)
[2019-02-23] MEDS ORDERED: PROPOFOL 10 MG/ML 20 ML VIAL IV ONE (12:23)
[2019-02-23] MEDS ORDERED: MIDAZOLAM 2 MG/2 ML VIAL ONE (12:23)
[2019-02-23] MEDS ORDERED: BUPIVACAIN-EPI 0.25%-1:200,000 30 ML VIAL SQ ONE ×2 (12:26→12:47)
[2019-02-23] MEDS ORDERED: LACTATED RINGERS 1,000 ML IV ONE (13:08)
[2019-02-23] MEDS ORDERED: HYDROmorphone 1 MG/ML 1 ML SYRINGE IVP PRN (13:32)
--- NOTE | 2019-02-23 13:32 | P.OP ---
Date of Procedure: 02/23/19 Preoperative Diagnosis: Acute cholecystitis Postoperative Diagnosis: Acute gangrenous cholecystitis Procedure(s) Performed: Laparoscopic cholecystectomy Anesthesia: ALBINO Surgeon: Mark Ahuja Estimated Blood Loss (ml): 20 Pathology: other (Gallbladder) Condition: stable Disposition: PACU Operative Findings: Acute gangrenous cholecystitis Description of Procedure: The patient was placed on the operating table. The patient received a general endotracheal tube anesthesia. The patients abdomen was prepped and draped in the usual sterile fashion. Through an infraumbilical stab incision, the fascia of the anterior abdominal wall was grasped with a pair of Kochers and then the Veress needle was placed in the peritoneal cavity. Position of the Veress needle was confirmed with positive drop test. The abdomen was then insufflated. After adequate insufflation, the 10 mm trocar was placed in the peritoneal cavity. Following this the laparoscope was placed in the peritoneal cavity. The patient was placed in the head-up, right side up position and then a 5 mm trocar was placed in the right lateral and right subcostal position under direct visualization. A 8 mm trocar was placed in the epigastric position. The gallbladder was necrotic. There is patchy necrosis along the anterior wall of the gallbladder. The gallbladder was quite tense. Using Harmonic scissors an opening was made in the gallbladder and the gallbladder was aspirated. The gallbladder was grasped in the fundus and infundibulum. Traction on the gallbladder was placed in the lateral and the cephalad positions. The gallbladder was very inflamed. The nate hepatis. Inflamed. At this point cystic artery was dissected. Cystic artery was then ligated using a 2-0 Ethibond suture and the timeout device. Because of the intense inflammation the cystic duct could not be clearly identified entering into the common bile duct. At this point it was decided to perform a subtotal cystectomy. The neck of the gallbladder was then ligated with 2-0 Ethibond suture and the timeout device. The gallbladder was then divided using the Harmonic scissors. The gallbladder was then taken off the liver bed using the Harmonic scissors. The gallbladder was placed into an Endo Catch and brought out through the epigastric port site. Liver metastatic for hemostasis. There is no bleeding seen. A HARPER drain is placed into the. Cavity and brought out through the right lateral trocar site. The drain was positioned into the gallbladder fossa. The abdomen was irrigated there is no bleeding seen. The trochars withdrawn. Skin was closed interrupted 3-0 Monocryl suture.
--- NOTE | 2019-02-23 13:50 | P.PN ---
Subjective Progress Note Date: 02/23/19 Principal diagnosis: Abdominal pain, acute cholecystitis, palpitation, BPH 78-year-old male one of my office patient with past medical history of kidney stone, BPH, skin cancer and mildly elevated blood pressure who apparently did not feel well yesterday had the large dinner end up going to [employer] with his friend developed to have significant abdominal pain with nausea and vomiting after he made it home and subtle down the continue having nausea vomiting 2 then developed to have significant palpitation and rapid pulse with mild cold sweat and ended up asking his to drive him to the emergency department at [facility] where he was seen and evaluated surprisingly his EKG showed sinus tachycardia with no other acute component was negative patient CAT scan of the abdomen for his nausea vomiting came back with significant abnormality consistent with acute cholecystitis and possible cholelithiasis. Patient ended up having an ultrasound showed questionable for cholelithiasis and cholecystitis patient was admitted to Dr. Ahuja service Gen. surgery and he'll be going for gallbladder surgery today or tomorrow. 02/23: Cardiac workup came back negative, patient continued to have mild tachycardia was started on small dose of beta tiffani with metoprolol 25 g twice a day, patient is going for surgery today for cholecystectomy is on the results will decide on further management. Objective - Vital Signs Vital signs: Vital Signs Temp 101.2 F H 02/23/19 13:29 Pulse 101 H 02/23/19 13:44 Resp 22 02/23/19 13:44 BP 131/77 02/23/19 13:44 Pulse Ox 98 02/23/19 13:44 Intake & Output 02/22/19 02/23/19 02/23/19 18:59 06:59 18:59 Intake Total 1500 Output Total 10 Balance 1490 Weight 90.718 kg 90.718 kg Intake: IV 1500 Output: Estimated Blood Loss 10 Other: Voiding Method Toilet Toilet Toilet # Voids 1 1 - Exam Review of Systems CONSTITUTIONAL: Well-developed no acute respiratory distress. EYES: No icterus sclerae, no conjunctivitis. EARS, NOSE, MOUTH, THROAT, and FACE: No sore throat, lymphadenopathy, carotid bruits or deformity. RESPIRATORY: No SOB cough or wheezes. CARDIOVASCULAR: No CP, Palpitation, PND, Orthopnea, or angina. Mild tachycardia GASTROINTESTINAL: Abdominal pain with nausea and vomiting. GENITOURINARY: Negative for Hematuria or UTI, no kidney stones. INTEGUMENT/BREAST: Negative for any muscular injury with mild osteoarthritis.. HEMATOLOGIC/LYMPHATIC: Negative for bleed or purpura. MUSCULOSKELTAL: Negative for Myalgia or arthralgia. NEURLOGICAL: No LOC, Sz or syncope, blurred vision dizziness or abnormality.. BEHAVIORAL/PSYCH: Negative. ENDOCRINE: Negative. Physical Exam Vitals: General Appearance: Alert, cooperative, no distress, appears stated age. Neck HEENT: Supple, no lymphadenopathy, no thyroid enlargement, no carotid bruits. Lungs: Clear to auscultation without crackles or wheezes no rhonchi, no deformity. Chest Wall: Chest wall normal expansion with deep inspiration no tenderness and no deformity was found on exam, no costochondral pain or discomfort. Heart: Regular rate and rhythm, S1, S2 normal, no murmur, rub or gallop. Normal sinus rhythm with mild tachycardia. Back: Symmetric, no curvature, ROM normal, no CVA tenderness. Abdomen: Soft positive bowel sounds like tenderness in the right upper quadrant area and mid epigastric area no rebound or rigidity. Extremities: Extremities normal, atraumatic, no cyanosis or edema. Pulses: 2+ and symmetric. Skin: Skin color, texture, tugor normal, no rashes or lesions. Neurologic: Alert oriented x3 cranial nerves II through XII intact, no motor deficit, no abnormal balance or gait. - Labs CBC & Chem 7: 02/22/19 05:05 02/22/19 05:05 Labs: Microbiology - Last 24 Hours (Table) 02/22/19 09:32 Blood Culture - Preliminary Blood No Growth after 24 hours Assessment and Plan Plan: 1 abdominal pain: Most likely acute cholecystitis with possibility of gallstone pass in the common duct cause more pain discomfort in the abdominal pain with nausea and vomiting symptoms are slightly but better continue conservative management, patient seen general surgery for possible be going for gallbladder surgery in the afternoon today. Surgery is scheduled today at 10:00. 2 acute cholecystitis with possible cholelithiasis: Had CT and ultrasound were positive patient be going for surgery. Will be going for surgery today. 3 chronic neuropathy and chronic lower back pain has been on Lyrica doing well with it resume medication after surgery. 4 mild tachycardia: Mostly sinus tachycardia, patient was started on metoprolol 25 g twice a day if needed will add calcium channel tiffani or titrate beta tiffani. 5 BPH with no sign of urinary retention patient remain on Proscar 5 mg daily continue medication. 6 GI prophylaxis/GERD: Will add pantoprazole 40 mg daily. 7 DVT prophylaxis: Venodyne boots and knee-high DEENA hose and after surgery will use subcu heparin. Next
[2019-02-23] MEDS ORDERED: KETOROLAC 30 MG/ML 1 ML VIAL IVP ONE (13:52)
[2019-02-23] MEDS ORDERED: HYDROmorphone 1 MG/ML 1 ML SYRINGE IVP ONE (14:15)
[2019-02-23] MEDS: SODIUM CHLORIDE 0.9% 1,000 ML IV SCH ×2 (16:51→19:34)
[2019-02-24] MEDS: SODIUM CHLORIDE 0.9% 1,000 ML IV SCH ×3 (03:10→21:15)
[2019-02-24] MEDS ORDERED: HEPARIN SODIUM,PORCINE 5,000 UNIT/ML 1 ML VIAL SQ SCH (08:00)
[2019-02-24] MEDS: PIPERACILLIN-TAZOBACTAM 3.375 GM in SODIUM CHLORIDE 0.9% 100 ML IVPB SCH ×2 (08:15→16:00)
[2019-02-24] MEDS: PREGABALIN 100 MG CAP PO SCH ×2 (08:16→21:14)
[2019-02-24] MEDS: PANTOPRAZOLE 40 MG/10 ML VIAL IVP SCH (08:16)
[2019-02-24] MEDS: HEPARIN SODIUM,PORCINE 5,000 UNIT/ML 1 ML VIAL SQ SCH ×2 (08:16→16:00)
[2019-02-24] MEDS: METOPROLOL TARTRATE 25 MG TAB PO SCH ×2 (08:16→21:14)
--- NOTE | 2019-02-24 11:18 | P.PN ---
Subjective Progress Note Date: 02/24/19 78-year-old male one of my office patient with past medical history of kidney stone, BPH, skin cancer and mildly elevated blood pressure who apparently did not feel well yesterday had the large dinner end up going to nondenominational with his friend developed to have significant abdominal pain with nausea and vomiting after he made it home and subtle down the continue having nausea vomiting 2 then developed to have significant palpitation and rapid pulse with mild cold sweat and ended up asking his to drive him to the emergency department at [facility] where he was seen and evaluated surprisingly his EKG showed sinus tachycardia with no other acute component was negative patient CAT scan of the abdomen for his nausea vomiting came back with significant abnormality consistent with acute cholecystitis and possible cholelithiasis. Patient ended up having an ultrasound showed questionable for cholelithiasis and cholecystitis patient was admitted to Dr. Ahuja service Gen. surgery and he'll be going for gallbladder surgery today or tomorrow. 02/23: Cardiac workup came back negative, patient continued to have mild tachycardia was started on small dose of beta tiffani with metoprolol 25 g twice a day, patient is going for surgery today for cholecystectomy is on the results will decide on further management. 02/24: Yesterday, patient underwent laparoscopic cholecystectomy for acute ga ngrenous cholecystitis with Dr. Ahuja. Pathology report is pending. Temperature max 101.2 in the past 24 hours. Heart rate is 89, blood pressure 117/63, pulse ox 92% on room air. Patient is currently on a regular diet. Patient is tolerating diet without nausea or vomiting. Pain is currently controlled. HARPER drain in place. Anticipate probable discharge home today. Prescription for Lopressor is been sent to his pharmacy. Objective - Vital Signs Vital signs: Vital Signs Temp 98.3 F 02/23/19 23:21 Pulse 89 02/23/19 23:21 Resp 18 02/24/19 03:16 BP 117/63 02/23/19 23:21 Pulse Ox 92 L 02/23/19 23:21 Intake & Output 02/23/19 02/24/19 02/24/19 18:59 06:59 18:59 Intake Total 1800 Output Total 80 25 Balance 1720 -25 Weight 90.718 kg Intake: IV 1800 Output: Drainage 70 25 Abdomen 70 25 Estimated Blood Loss 10 Other: Voiding Method Toilet Toilet - Exam Review of Systems CONSTITUTIONAL: Well-developed no acute respiratory distress. Denies fever, denies chills. EYES: No icterus sclerae, no conjunctivitis. EARS, NOSE, MOUTH, THROAT, and FACE: No sore throat, lymphadenopathy, carotid bruits or deformity. RESPIRATORY: No SOB cough or wheezes. CARDIOVASCULAR: No CP, Palpitation, PND, Orthopnea, or angina. GASTROINTESTINAL: Abdominal pain, denies nausea, denies vomiting. GENITOURINARY: Negative for Hematuria or UTI, no kidney stones. INTEGUMENT/BREAST: Negative for any muscular injury with mild osteoarthritis.. HEMATOLOGIC/LYMPHATIC: Negative for bleed or purpura. MUSCULOSKELTAL: Negative for Myalgia or arthralgia. NEURLOGICAL: No LOC, Sz or syncope, blurred vision dizziness or abnormality.. BEHAVIORAL/PSYCH: Negative. ENDOCRINE: Negative. Physical Exam Vitals: General Appearance: Alert, cooperative, no distress, appears stated age. Neck HEENT: Supple, no lymphadenopathy, no thyroid enlargement, no carotid bruits. Lungs: Clear to auscultation without crackles or wheezes no rhonchi, no deformity. Chest Wall: Chest wall normal expansion with deep inspiration no tenderness and no deformity was found on exam, no costochondral pain or discomfort. Heart: Regular rate and rhythm, S1, S2 normal, no murmur, rub or gallop. Normal sinus rhythm. Back: Symmetric, no curvature, ROM normal, no CVA tenderness. Abdomen: Soft, positive bowel sounds, minimal abdominal tenderness. HARPER drain in place. Extremities: Extremities normal, atraumatic, no cyanosis or edema. Pulses: 2+ and symmetric. Skin: Skin color, texture, tugor normal, no rashes or lesions. Neurologic: Alert oriented x3 cranial nerves II through XII intact, no motor deficit, no abnormal balance or gait. - Labs CBC & Chem 7: 02/22/19 05:05 02/22/19 05:05 Labs: Microbiology - Last 24 Hours (Table) 02/22/19 09:32 Blood Culture - Preliminary Blood No Growth after 24 hours Assessment and Plan Plan: 1 abdominal pain: Most likely acute cholecystitis with possibility of gallstone pass in the common duct status post laparoscopic cholecystectomy. 2 acute gangrenous cholecystitis with possible cholelithiasis status post laparoscopic cholecystectomy. Continue pain medication, Zofran for nausea, Zosyn. Patient is currently on regular diet 3 chronic neuropathy and chronic lower back pain. Resume Lyrica 100 mg twice daily. 4 mild sinus tachycardia, rate controlled. Continue metoprolol 25 mg twice daily. Prescription for Lopressor has been sent to his pharmacy. 5 BPH. Continue Proscar 5 mg at bedtime. Monitor for urinary retention. 6 GI prophylaxis/GERD: Will add pantoprazole 40 mg daily. 7 DVT prophylaxis: Venodyne boots and knee-high DEENA hose, subcu heparin. Discharge plan: Home Impression and plan of care have been directed as dictated by the signing physician. Bonnie Davis nurse practitioner acting as scribe for signing physician.
--- NOTE | 2019-02-24 20:51 | P.PN ---
Subjective Progress Note Date: 02/24/19 CHIEF COMPLAINT: Acute hydrops cholecystitis with cholangitis HISTORY OF PRESENT ILLNESS: The patient is a 78-year-old male postop day 1 status post cholecystectomy for acute hydrops purulent cholecystitis and cholangitis. He feels wonderful today. He is tolerating diet. No further ports of atypical chest pain. ROS: No reports of nausea and vomiting. No fevers or chills. No new chest pain. No productive sputum PHYSICAL EXAM: VITAL SIGNS: Reviewed CONSTITUTIONAL: Well developed and in no acute distress. EYES: Extraocular movements grossly intact. HEAD, EARS, NOSE, THROAT: Moist buccal mucosa. Head is atraumatic, normocephalic. Hears conversational speech. No nasal drainage. NECK: Supple. No thyroidomegaly. RESPIRATORY: Non-labored respirations and equal bilateral excursions. CARDIOVASCULAR: Palpable 2+ radial pulses. ABDOMEN: Incisions clean dry and intact. Soft. No peritonitis. MUSCULOSKELETAL: No gross deformity of the lower extremities noted. No clubbing. No cyanosis. SKIN: Good skin turgor. Well perfused. NEUROLOGIC: Cranial nerves I through XII grossly intact. No focal or lateralizing signs. PSYCH: Appropriate affect. Alert and oriented to person, place and time. CLINICAL LABS: White blood cell count normal ASSESSMENT: 1. Acute hydrops cholecystitis with ascending cholangitis PLAN: 1. Monitor LFTs 2. May discharge home once tolerating diet tomorrow. Objective - Vital Signs Vital signs: Vital Signs Temp 98.3 F 02/24/19 19:55 Pulse 93 02/24/19 19:55 Resp 16 02/24/19 19:55 BP 138/65 02/24/19 19:55 Pulse Ox 93 L 02/24/19 19:55 Intake & Output 02/24/19 02/24/19 02/25/19 06:59 18:59 06:59 Intake Total 540 Output Total 25 40 30 Balance -25 500 -30 Intake: Oral 240 Other 300 Output: Drainage 25 40 30 Abdomen 25 40 30 Other: Voiding Method Toilet Toilet Toilet - Labs CBC & Chem 7: 02/22/19 05:05 02/22/19 05:05 Labs: Microbiology - Last 24 Hours (Table) 02/22/19 09:32 Blood Culture - Preliminary Blood No Growth after 48 hours Assessment and Plan (1) Choledocholithiasis Current Visit: Yes Status: Acute Code(s): K80.50 - CALCULUS OF BILE DUCT W/O CHOLANGITIS OR CHOLECYST W/O OBST SNOMED Code(s): 923363519 (2) Choledocholithiasis with acute cholecystitis Current Visit: Yes Status: Acute Code(s): K80.42 - CALCULUS OF BILE DUCT W ACUTE CHOLECYSTITIS W/O OBSTRUCTION SNOMED Code(s): 19676302 (3) Choledocholithiasis with acute cholecystitis with obstruction Current Visit: Yes Status: Acute Code(s): K80.43 - CALCULUS OF BILE DUCT W ACUTE CHOLECYSTITIS WITH OBSTRUCTION SNOMED Code(s): 44371763
[2019-02-24] MEDS: FINASTERIDE 5 MG TAB PO SCH (21:14)
[2019-02-25] MEDS: PIPERACILLIN-TAZOBACTAM 3.375 GM in SODIUM CHLORIDE 0.9% 100 ML IVPB SCH ×4 (00:40→23:32)
[2019-02-25] MEDS: HEPARIN SODIUM,PORCINE 5,000 UNIT/ML 1 ML VIAL SQ SCH ×4 (00:40→23:32)
[2019-02-25 07:34] LABS: Basophils % (A) 0 %; Eosinophils # (A) 0.2 k/uL (0-0.7); Eosinophils % (A) 3 %; HCT 35.8 % (39.0-53.0); Lymphocytes # (A) 0.6 k/uL (1.0-4.8); Lymphocytes % (A) 11 %; MCH 31.4 pg (25.0-35.0); MCHC 33.2 g/dL (31.0-37.0); MCV 94.5 fL (80.0-100.0); Mean Platelet Volume 7.7; Monocytes # (A) 0.4 k/uL (0-1.0); Monocytes % (A) 7 %; Neutrophils # (A) 4.6 k/uL (1.3-7.7); Neutrophils % (A) 78 %; Platelet Count 126 k/uL (150-450); RBC 3.79 m/uL (4.30-5.90); RDW 12.6 % (11.5-15.5); WBC 5.9 k/uL (3.8-10.6)
[2019-02-25 07:41] LABS: HGB 11.9 gm/dL (13.0-17.5)
[2019-02-25 07:46] LABS: Albumin 2.7 g/dL (3.5-5.0); Calcium 8.2 mg/dL (8.4-10.2); Total Bilirubin 0.9 mg/dL (0.2-1.3); Total Protein 5.2 g/dL (6.3-8.2)
[2019-02-25] MEDS: SODIUM CHLORIDE 0.9% 1,000 ML IV SCH ×2 (08:09→19:19)
[2019-02-25] MEDS: METOPROLOL TARTRATE 25 MG TAB PO SCH ×2 (08:09→21:05)
[2019-02-25] MEDS: PANTOPRAZOLE 40 MG/10 ML VIAL IVP SCH (08:09)
[2019-02-25] MEDS: PREGABALIN 100 MG CAP PO SCH ×2 (08:09→21:05)
--- NOTE | 2019-02-25 12:02 | P.PN ---
Subjective Progress Note Date: 02/25/19 78-year-old male one of my office patient with past medical history of kidney stone, BPH, skin cancer and mildly elevated blood pressure who apparently did not feel well yesterday had the large dinner end up going to [employer]abapt[employer] with his friend developed to have significant abdominal pain with nausea and vomiting after he made it home and subtle down the continue having nausea vomiting 2 then developed to have significant palpitation and rapid pulse with mild cold sweat and ended up asking his to drive him to the emergency department at [facility] where he was seen and evaluated surprisingly his EKG showed sinus tachycardia with no other acute component was negative patient CAT scan of the abdomen for his nausea vomiting came back with significant abnormality consistent with acute cholecystitis and possible cholelithiasis. Patient ended up having an ultrasound showed questionable for cholelithiasis and cholecystitis patient was admitted to Dr. Ahuja service Gen. surgery and he'll be going for gallbladder surgery today or tomorrow. 02/23: Cardiac workup came back negative, patient continued to have mild tachycardia was started on small dose of beta tiffani with metoprolol 25 g twice a day, patient is going for surgery today for cholecystectomy is on the results will decide on further management. 02/24: Yesterday, patient underwent laparoscopic cholecystectomy for acute ga ngrenous cholecystitis with Dr. Ahuja. Pathology report is pending. Temperature max 101.2 in the past 24 hours. Heart rate is 89, blood pressure 117/63, pulse ox 92% on room air. Patient is currently on a regular diet. Patient is tolerating diet without nausea or vomiting. Pain is currently controlled. HARPER drain in place. Anticipate probable discharge home today. Prescription for Lopressor is been sent to his pharmacy. 02/25: Patient has been afebrile. No documented fever since February 23. Repeat lab work reveals white count of 5.9, hemoglobin 11.9, BUN 24 and creatinine 1.12. Blood sugar 110. Liver function tests normal. Blood culture showing no growth after 48 hours. Pathology report remains pending. Patient is currently on a regular diet and tolerating. He denies any nausea or vomiting. Anticipate discharge home today. Objective - Vital Signs Vital signs: Vital Signs Temp 98.6 F 02/25/19 01:45 Pulse 86 02/25/19 01:45 Resp 16 02/25/19 01:45 BP 123/76 02/25/19 01:45 Pulse Ox 92 L 02/25/19 01:45 Intake & Output 02/24/19 02/25/19 02/25/19 18:59 06:59 18:59 Intake Total 540 800 Output Total 40 90 Balance 500 710 Intake: Intake, IV Titration 800 Amount Sodium Chloride 0.9% 1, 800 000 ml @ 100 mls/hr IV . Q10H [facility] Rx#:[id number] Oral 240 Other 300 Output: Drainage 40 90 Abdomen 40 90 Other: Voiding Method Toilet Toilet # Voids 2 - Exam Review of Systems CONSTITUTIONAL: Denies fever, denies chills. EYES: No icterus sclerae, no conjunctivitis. EARS, NOSE, MOUTH, THROAT, and FACE: No sore throat, lymphadenopathy, carotid bruits or deformity. RESPIRATORY: No SOB cough or wheezes. CARDIOVASCULAR: No CP, Palpitation, PND, Orthopnea, or angina. GASTROINTESTINAL: Abdominal pain, denies nausea, denies vomiting. GENITOURINARY: Negative for Hematuria or UTI, no kidney stones. INTEGUMENT/BREAST: Negative for any muscular injury with mild osteoarthritis.. HEMATOLOGIC/LYMPHATIC: Negative for bleed or purpura. MUSCULOSKELTAL: Negative for Myalgia or arthralgia. NEURLOGICAL: No LOC, Sz or syncope, blurred vision dizziness or abnormality.. BEHAVIORAL/PSYCH: Negative. ENDOCRINE: Negative. Physical Exam Vitals: General Appearance: Alert, cooperative, no distress, appears stated age. Neck HEENT: Supple, no lymphadenopathy, no thyroid enlargement, no carotid bruits. Lungs: Clear to auscultation without crackles or wheezes no rhonchi, no deformity. Chest Wall: Chest wall normal expansion with deep inspiration no tenderness and no deformity was found on exam, no costochondral pain or discomfort. Heart: Regular rate and rhythm, S1, S2 normal, no murmur, rub or gallop. Normal sinus rhythm. Back: Symmetric. Abdomen: Soft, positive bowel sounds, minimal abdominal tenderness. HARPER drain in place. Extremities: Extremities normal, atraumatic, no cyanosis or edema. Pulses: 2+ and symmetric. Skin: Skin color, texture, tugor normal, no rashes or lesions. Neurologic: Alert oriented x3 cranial nerves II through XII intact, no motor deficit, no abnormal balance or gait. - Labs CBC & Chem 7: 12/08/19 06:36 02/25/19 06:36 Labs: Abnormal Lab Results - Last 24 Hours (Table) 02/25/19 02/25/19 Range/Units 06:36 06:36 RBC 3.79 L (4.30-5.90) m/uL Hgb 11.9 L D (13.0-17.5) gm/dL Hct 35.8 L (39.0-53.0) % Plt Count 126 L (150-450) k/uL Lymphocytes # 0.6 L (1.0-4.8) k/uL BUN 24 H (9-20) mg/dL Glucose 110 H (74-99) mg/dL Calcium 8.2 L (8.4-10.2) mg/dL Total Protein 5.2 L (6.3-8.2) g/dL Albumin 2.7 L (3.5-5.0) g/dL Microbiology - Last 24 Hours (Table) 02/22/19 09:32 Blood Culture - Preliminary Blood No Growth after 48 hours Assessment and Plan Plan: 1 abdominal pain: Most likely acute cholecystitis with possibility of gallstone pass in the common duct status post laparoscopic cholecystectomy. 2 acute gangrenous cholecystitis with possible cholelithiasis status post laparoscopic cholecystectomy. Continue pain medication, Zofran for nausea, Zosyn. Patient is currently on regular diet 3 chronic neuropathy and chronic lower back pain. Resume Lyrica 100 mg twice daily. 4 mild sinus tachycardia, rate controlled. Continue metoprolol 25 mg twice daily. Prescription for Lopressor has been sent to his pharmacy. 5 BPH. Continue Proscar 5 mg at bedtime. Monitor for urinary retention. 6 GI prophylaxis/GERD: Will add pantoprazole 40 mg daily. 7 DVT prophylaxis: Venodyne boots and knee-high DEENA hose, subcu heparin. Discharge plan: Home today Impression and plan of care have been directed as dictated by the signing physician. Bonnie Davis nurse practitioner acting as scribe for signing physician.
--- NOTE | 2019-02-25 14:47 | P.PN ---
Subjective Progress Note Date: 02/25/19 CHIEF COMPLAINT: Acute necrotizing cholecystitis ASSESSMENT: 1. Acute came tenderness cholecystitis PLAN: 1. Overall clinically his abdominal pain has improved. 2. At this time, status of HARPER drain to be determined by admitting provider 3. Continue hospitalization with appropriate IV antibiotics. HISTORY OF PRESENT ILLNESS: The patient is a 78-year-old male postop day 2 status post chol ecystectomy for cystitis. He tolerated meatloaf and gravy. He is passing flatus and had a bowel movement. He still report abdominal soreness. He also has a HARPER drain. ROS: No reports of nausea and vomiting. No fevers or chills. No new chest pain. No productive sputum PHYSICAL EXAM: VITAL SIGNS: Reviewed CONSTITUTIONAL: Well developed and in no acute distress. EYES: Extraocular movements grossly intact. HEAD, EARS, NOSE, THROAT: Moist buccal mucosa. Head is atraumatic, normocephalic. Hears conversational speech. No nasal drainage. RESPIRATORY: Non-labored respirations and equal bilateral excursions. CARDIOVASCULAR: Palpable 2+ radial pulses. ABDOMEN: Incisions clean dry and intact. Soft. No peritonitis. Soft protuberant. HARPER with dark serosanguineous fluid. MUSCULOSKELETAL: No gross deformity of the lower extremities noted. No clubbing. No cyanosis. SKIN: Good skin turgor. Well perfused. NEUROLOGIC: Cranial nerves I through XII grossly intact. No focal or latera lizing signs. PSYCH: Appropriate affect. Alert and oriented to person, place and time. CLINICAL LABS: White blood cell count normal down from 11.9 to 5.9 Objective - Vital Signs Vital signs: Vital Signs Temp 98.1 F 02/25/19 08:00 Pulse 86 02/25/19 08:00 Resp 12 02/25/19 08:00 BP 147/80 02/25/19 08:00 Pulse Ox 93 L 02/25/19 08:00 Intake & Output 02/24/19 02/25/19 02/25/19 18:59 06:59 18:59 Intake Total 540 800 100 Output Total 40 90 60 Balance 500 710 40 Intake: Intake, IV Titration 800 100 Amount Piperacillin-Tazobactam 3 100 .375 gm In Sodium Chloride 0.9% 100 ml @ 25 mls/hr IVPB Q8HR [facility] Rx# :[id number] Sodium Chloride 0.9% 1, 800 000 ml @ 100 mls/hr IV . Q10H [facility] Rx#:[id number] Oral 240 Other 300 Output: Drainage 40 90 60 Abdomen 40 90 60 Other: Voiding Method Toilet Toilet Toilet # Voids 2 - Labs CBC & Chem 7: 02/25/19 06:36 02/25/19 06:36 Labs: Abnormal Lab Results - Last 24 Hours (Table) 02/25/19 02/25/19 Range/Units 06:36 06:36 RBC 3.79 L (4.30-5.90) m/uL Hgb 11.9 L D (13.0-17.5) gm/dL Hct 35.8 L (39.0-53.0) % Plt Count 126 L (150-450) k/uL Lymphocytes # 0.6 L (1.0-4.8) k/uL BUN 24 H (9-20) mg/dL Glucose 110 H (74-99) mg/dL Calcium 8.2 L (8.4-10.2) mg/dL Total Protein 5.2 L (6.3-8.2) g/dL Albumin 2.7 L (3.5-5.0) g/dL Microbiology - Last 24 Hours (Table) 02/22/19 09:32 Blood Culture - Preliminary Blood No Growth after 72 hours Assessment and Plan (1) Acute gangrenous cholecystitis Current Visit: Yes Status: Acute Code(s): K81.0 - ACUTE CHOLECYSTITIS SNOMED Code(s): 48746632
[2019-02-25] MEDS: FINASTERIDE 5 MG TAB PO SCH (21:05)
[2019-02-26] MEDS: SODIUM CHLORIDE 0.9% 1,000 ML IV SCH ×2 (05:50→14:02)
[2019-02-26] MEDS: HEPARIN SODIUM,PORCINE 5,000 UNIT/ML 1 ML VIAL SQ SCH (08:51)
[2019-02-26] MEDS: PANTOPRAZOLE 40 MG/10 ML VIAL IVP SCH (08:51)
[2019-02-26] MEDS: PREGABALIN 100 MG CAP PO SCH (08:51)
[2019-02-26] MEDS: METOPROLOL TARTRATE 25 MG TAB PO SCH (08:51)
[2019-02-26] MEDS: PIPERACILLIN-TAZOBACTAM 3.375 GM in SODIUM CHLORIDE 0.9% 100 ML IVPB SCH (08:52)
--- NOTE | 2019-02-26 11:56 | P.DS ---
Providers Date of admission: 02/23/19 13:47 Expected date of discharge: 02/26/19 Attending physician: Mark Ahuja Consults: 02/22/19 11:36 Consult Physician Routine Consulting Provider: Vaughn Bai Consult Reason/Comments: medical management Do you want consulting provider notified?: Yes Primary care physician: Vaughn Bai Hospital Course: 78-year-old male who presented to the emergency room with a chief complaint of abdominal pain. Patient underwent laparoscopic cholecystectomy secondary to acute gangrenous cholecystitis. Patient is doing well postoperatively. He is stable for discharge home today. Please see EMR for further hospital course details. Discharge Diagnosis: 1. Abdominal pain, nausea, vomiting 2. Acute gangrenous cholecystitis Nurse practitioner note has been reviewed by physician. Signing provider agrees with the documented findings, assessment, and plan of care. Patient Condition at Discharge: Stable Plan - Discharge Summary Discharge Rx Participant: No New Discharge Prescriptions: New Metoprolol Tartrate [Lopressor] 25 mg PO BID #60 tab Continue Pregabalin 100 mg PO BID Acetaminophen Tab [Tylenol] 1,000 mg PO Q6HR PRN PRN Reason: Pain Finasteride [Proscar] 5 mg PO HS Cyanocobalamin (Vitamin B-12) [Vitamin B-12] 1,000 mcg PO DAILY Discharge Medication List Acetaminophen Tab [Tylenol] 1,000 mg PO Q6HR PRN 02/22/19 [History] Cyanocobalamin (Vitamin B-12) [Vitamin B-12] 1,000 mcg PO DAILY 02/22/19 [History] Finasteride [Proscar] 5 mg PO HS 02/22/19 [History] Pregabalin 100 mg PO BID 02/22/19 [History] Metoprolol Tartrate [Lopressor] 25 mg PO BID #60 tab 02/24/19 [Rx] Follow up Appointment(s)/Referral(s): Vaughn Bai MD [Primary Care Provider] - 1 Week
--- NOTE | 2019-02-26 15:01 | P.PN ---
Subjective Progress Note Date: 02/26/19 78-year-old male one of my office patient with past medical history of kidney stone, BPH, skin cancer and mildly elevated blood pressure who apparently did not feel well yesterday had the large dinner end up going to congregational with his friend developed to have significant abdominal pain with nausea and vomiting after he made it home and subtle down the continue having nausea vomiting 2 then developed to have significant palpitation and rapid pulse with mild cold sweat and ended up asking his to drive him to the emergency department at [facility] where he was seen and evaluated surprisingly his EKG showed sinus tachycardia with no other acute component was negative patient CAT scan of the abdomen for his nausea vomiting came back with significant abnormality consistent with acute cholecystitis and possible cholelithiasis. Patient ended up having an ultrasound showed questionable for cholelithiasis and cholecystitis patient was admitted to Dr. Ahuja service Gen. surgery and he'll be going for gallbladder surgery today or tomorrow. 02/23: Cardiac workup came back negative, patient continued to have mild tachycardia was started on small dose of beta tiffani with metoprolol 25 g twice a day, patient is going for surgery today for cholecystectomy is on the results will decide on further management. 02/24: Yesterday, patient underwent laparoscopic cholecystectomy for acute ga ngrenous cholecystitis with Dr. Ahuja. Pathology report is pending. Temperature max 101.2 in the past 24 hours. Heart rate is 89, blood pressure 117/63, pulse ox 92% on room air. Patient is currently on a regular diet. Patient is tolerating diet without nausea or vomiting. Pain is currently controlled. HARPER drain in place. Anticipate probable discharge home today. Prescription for Lopressor is been sent to his pharmacy. 02/25: Patient has been afebrile. No documented fever since February 23. Repeat lab work reveals white count of 5.9, hemoglobin 11.9, BUN 24 and creatinine 1.12. Blood sugar 110. Liver function tests normal. Blood culture showing no growth after 48 hours. Pathology report remains pending. Patient is currently on a regular diet and tolerating. He denies any nausea or vomiting. Anticipate discharge home today. 02/26: Patient states that he had a soft bowel movement this morning. He is on a regular diet and tolerating with no nausea or vomiting. HARPER drain remains in place. Patient is scheduled for discharge home today. He has been afebrile, blood pressure 133/77, heart rate 76, pulse ox 94% on room air. Objective - Vital Signs Vital signs: Vital Signs Temp 98.3 F 02/26/19 06:49 Pulse 63 02/26/19 06:49 Resp 17 02/26/19 06:49 BP 133/77 02/26/19 06:49 Pulse Ox 94 L 02/26/19 06:49 Intake & Output 02/25/19 02/26/19 02/26/19 18:59 06:59 18:59 Intake Total 100 1100 180 Output Total 115 Balance -15 1100 180 Intake: Intake, IV Titration 100 1100 Amount Piperacillin-Tazobactam 3 100 .375 gm In Sodium Chloride 0.9% 100 ml @ 25 mls/hr IVPB Q8HR [facility] Rx# :[id number] Sodium Chloride 0.9% 1, 1100 000 ml @ 100 mls/hr IV . Q10H [facility] Rx#:[id number] Oral 180 Output: Drainage 115 Abdomen 115 Other: Voiding Method Toilet - Exam Review of Systems CONSTITUTIONAL: Denies fever, denies chills. EYES: No icterus sclerae, no conjunctivitis. EARS, NOSE, MOUTH, THROAT, and FACE: No sore throat, lymphadenopathy, carotid bruits or deformity. RESPIRATORY: No SOB cough or wheezes. CARDIOVASCULAR: No CP, Palpitation, PND, Orthopnea, or angina. GASTROINTESTINAL: Abdominal pain, denies nausea, denies vomiting. GENITOURINARY: Negative for Hematuria or UTI, no kidney stones. INTEGUMENT/BREAST: Negative for any muscular injury with mild osteoarthritis.. HEMATOLOGIC/LYMPHATIC: Negative for bleed or purpura. MUSCULOSKELTAL: Negative for Myalgia or arthralgia. NEURLOGICAL: No LOC, Sz or syncope, blurred vision dizziness or abnormality.. BEHAVIORAL/PSYCH: Negative. ENDOCRINE: Negative. Physical Exam General Appearance: Alert, cooperative, no distress, appears stated age. Neck HEENT: Supple, no lymphadenopathy, no thyroid enlargement, no carotid bruits. Lungs: Clear to auscultation without crackles or wheezes no rhonchi, no deformity. Chest Wall: Chest wall normal expansion with deep inspiration no tenderness and no deformity was found on exam, no costochondral pain or discomfort. Heart: Regular rate and rhythm, S1, S2 normal, no murmur, rub or gallop. Normal sinus rhythm. Back: Symmetric. Abdomen: Soft, positive bowel sounds, minimal abdominal tenderness. HARPER drain in place. Extremities: Extremities normal, atraumatic, no cyanosis or edema. Pulses: 2+ and symmetric. Skin: Skin color, texture, tugor normal, no rashes or lesions. Neurologic: Alert oriented x3 cranial nerves II through XII intact, no motor deficit, no abnormal balance or gait. - Labs CBC & Chem 7: 02/25/19 06:36 02/25/19 06:36 Labs: Microbiology - Last 24 Hours (Table) 02/22/19 09:32 Blood Culture - Preliminary Blood No Growth after 72 hours Assessment and Plan Plan: 1 abdominal pain: Most likely acute cholecystitis with possibility of gallstone pass in the common duct status post laparoscopic cholecystectomy. HARPER drain in place. 2 acute gangrenous cholecystitis with possible cholelithiasis status post laparoscopic cholecystectomy. Continue pain medication, Zofran for nausea, Zosyn. Patient is currently on regular diet 3 chronic neuropathy and chronic lower back pain. Resume Lyrica 100 mg twice daily. 4 mild sinus tachycardia, rate controlled. Continue metoprolol 25 mg twice daily. Prescription for Lopressor has been sent to his pharmacy. 5 BPH. Continue Proscar 5 mg at bedtime. Monitor for urinary retention. 6 GI prophylaxis/GERD: Will add pantoprazole 40 mg daily. 7 DVT prophylaxis: Venodyne boots and knee-high DEENA hose, subcu heparin. Discharge plan: Home today Impression and plan of care have been directed as dictated by the signing physician. Bonnie Davis nurse practitioner acting as scribe for signing physician.
[2019-02-26 15:33] VITALS: BP 129/67; PULSE 92; RESP 16; TEMP 98.2
[2019-02-27] MEDS ORDERED: PANTOPRAZOLE 40 MG TABLET PO SCH (07:30)
== END 2019-02-26 15:41 | disposition home health service (06) | DRG 418 ==
LOC: EC 04:49 → 1SOBS 08:35 → OBSVTOIN 02-23 13:47 → 4SSUR 02-24 17:34
PROVIDERS: ADMIT Surgery; ATTEND Surgery
PROC: 0FT44ZZ Resection of Gallbladder, Percutaneous Endoscopic Approach (ICD-10-PCS; principal; 2019-02-23 11:40)
DX: K80.43 Calculus of bile duct with acute cholecystitis with obstruction (principal); K82.1 Hydrops of gallbladder; K82.A1 Gangrene of gallbladder in cholecystitis; N40.0 Benign prostatic hyperplasia without lower urinary tract symptoms; Z79.899 Other long term (current) drug therapy; Z85.828 Personal history of other malignant neoplasm of skin; Z87.442 Personal history of urinary calculi; Z87.891 Personal history of nicotine dependence; G62.9 Polyneuropathy, unspecified; M54.5 Low back pain; G89.29 Other chronic pain; R00.0 Tachycardia, unspecified
CPT/HCPCS: 36415; 71045; 74176; 76705; 80053; 81001; 83735; 83880; 84443; 84484; 85025; 85610; 85730; 87040; 88304; 93005; 93306; 99285

== ENCOUNTER → 2022-03-12 | Outpatient (CLI) | payer MEDICARE ==
--- NOTE | 2022-03-12 11:50 | CT ---
EXAMINATION TYPE: CT brain wo con DATE OF EXAM: 03/12/2022 COMPARISON: None HISTORY: left side occipital headache x [address] DLP: [address] of the brain was performed. The ventricles, basal cisterns and sulci overlying the cerebral convexities demonstrate mild enlargem ent. There is no evidence for intracranial hemorrhage or sulcal effacement. There is decreased attenuation about the periventricular white matter and deep white matter of both c erebral hemispheres, compatible with chronic small vessel ischemia. Differential diagnosis does inclu de demyelination. No mass effects are seen.No midline shift. Osseous calvarium is intact. If symptoms persist consider MRI. IMPRESSION: 1. Age related atrophic and chronic small vessel ischemic change without acute intracranial process s een at this time.
== END | disposition home or self-care (01) ==
LOC: RADCTMAIN 11:25
PROVIDERS: ATTEND Internal Medicine Geriatric Medicine
DX: G31.1 Senile degeneration of brain, not elsewhere classified (principal); I67.82 Cerebral ischemia
CPT/HCPCS: 70450

== ENCOUNTER 2024-09-02 22:15 | Emergency (ER) | payer MEDICARE ==
[2024-09-02 22:22] VITALS: RESP 18; TEMP 98.5
--- NOTE | 2024-09-02 23:18 | ED ---
General Adult HPI - General Chief complaint: Allergic Reaction Stated complaint: Burning in eyes Time Seen by Provider: 09/02/24 22:30 Source: patient, family, RN notes reviewed, old records reviewed Mode of arrival: ambulatory - History of Present Illness Initial comments: 84-year-old male presents with complaints of redness and tearing in both of his eyes. States 4 days ago he developed a tickle in his throat and also some increased redness and tearing in his right eye. States later that day he also noticed some redness and tearing in the left eye as well. States since that time he has gone to see his PCP who prescribed a short course of oral steroids and Zyrtec. States the cough and ticklish throat has subsided but the redness and tearing in the eyes have gotten worse. States the discharge from the eyes are yellowish in nature. Denies any diminished vision other than when when a lot of discharge accumulates in his eyes the vision gets a little blurry but af ter wiping his eyes he can see clearly. Denies fevers or any other symptoms at this time - Related Data Home Medications Medication Instructions Recorded Confirmed Acetaminophen Tab [Tylenol] 1,000 mg PO Q6HR PRN 02/22/19 02/22/19 Cyanocobalamin (Vitamin B-12) 1,000 mcg PO DAILY 02/22/19 02/22/19 [Vitamin B-12] Finasteride [Proscar] 5 mg PO HS 02/22/19 02/22/19 Pregabalin 100 mg PO BID 02/22/19 02/22/19 Previous Rx's Medication Instructions Recorded Metoprolol Tartrate [Lopressor] 25 mg PO BID #60 tab 02/24/19 Hydrocodone/Acetaminophen [[place] 1 tab PO Q6HR PRN 3 Days #12 tab 02/26/19 5-325] Ofloxacin 0.3% Ophth Soln [Ocuflox 1 - 2 drops BOTH EYES QID 7 Days 09/02/24 Ophth Soln] #10 ml Allergies Allergy/AdvReac Type Severity Reaction Status Date / Time No Known Allergies Allergy Verified 02/22/19 09:13 Review of Systems ROS Statement: Those systems with pertinent positive or pertinent negative responses have been documented in the HPI. ROS Other: All systems not noted in ROS Statement are negative. Past Medical History Past Medical History: Cancer, Osteoarthritis (OA), Pneumonia, Prostate Disorder, Renal Disease Additional Past Medical History / Comment(s): Spinal stenosis with neuropathy bilateral feet, chronic low back pain, BPH, kidney surgery for stones, skin cancer removed from L cheek. History of Any Multi-Drug Resistant Organisms: None Reported Past Surgical History: Hernia Repair, Tonsillectomy Additional Past Surgical History / Comment(s): Lithotripsy, bilateral inguinal hernia repairs, colonoscopies, L cheek skin cancer removal Past Anesthesia/Blood Transfusion Reactions: No Reported Reaction Additional Past Anesthesia/Blood Transfusion Reaction / Comment(s): Pt has clausterphobia Past Psychological History: No Psychological Hx Reported Past Alcohol Use History: Rare Past Drug Use History: None Reported - Past Family History Father Family Medical History: No Reported History Additional Family Medical History / Comment(s): Father comitted suicide at the age of 75yrs. Mother Family Medical History: No Reported History Additional Family Medical History / Comment(s): Mother was healthy and lived to be 90yrs. General Exam - General Exam Comments Initial Comments: GENERAL: In no apparent distress at the time of examination. Pleasant and cooperative. HEENT: Head is atraumatic, normocephalic. Pupils are equal, round, and reactive to light. Sclerae anicteric. Conjunctivae erythematous and injected bilaterally. Yellow exudates appreciated bilaterally. Mucus membranes of the mouth are vanessa st. Neck is supple. RESPIRATORY: Clear to auscultation. No wheezes, rales, or rhonchi. No use of accessory muscles. Patient maintaining oxygen saturation greater than 92%. No chest wall tenderness is noted on palpation or with deep breathing. CARDIOVASCULAR: Regular rate and rhythm. S1 and S2 noted. No systolic or diastolic murmur auscultated. No JVD noted. No S3 or S4 noted. GASTROINTESTINAL: No distention noted. Abdomen soft and round. Normal active bowel sounds auscultated x 4 quadrants. No pain or tenderness noted upon palpation. INTEGUMENTARY: No cyanosis. No jaundice. No rashes noted. No cellulitis noted. EXTREMITIES: 2+ peripheral pulses. No evidence of peripheral edema. No calf tenderness noted. PSYCHIATRIC: Awake, alert, and oriented X 3. Appropriate affect. Intact judgeme nt and insight. Course Vital Signs 09/02/24 22:17 Temperature 98.5 F Pulse Rate 79 Respiratory 18 Rate Blood Pressure 163/82 O2 Sat by Pulse 97 Oximetry Medical Decision Making - Medical Decision Making Was pt. sent in by a medical professional or institution (SINTIA Murphy, GUEST SERVICES AGENT, urgent care, hospital, or fpc...) When possible be specific @ -No Did you speak to anyone other than the patient for history (EMS, parent, family, police, friend...)? What history was obtained from this source @ -Yes, family. Did you review nursing and triage notes (agree or disagree)? Why? @ -I reviewed and agree with nursing and triage notes Were old charts reviewed (outside hosp., previous admission, EMS record, old EKG, old radiological studies, urgent care reports/EKG's, fpc records)? Report findings @ -No old charts were reviewed Differential Diagnosis? @ -Bacterial conjunctivitis versus allergic conjunctivitis versus viral conjunctivitis versus foreign body versus corneal laceration is not meant to be a fully inclusive list EKG interpreted by me (3pts min.). @ -As above X-rays interpreted by me (1pt min.). @ -None done CT interpreted by me (1pt min.). @ -None done U/S interpreted by me (1pt. min.). @ -None done What testing was considered but not performed or refused? (CT, X-rays, U/S, labs)? Why? @ -None What meds were considered but not given or refused? Why? @ -None Did you discuss the management of the patient with other professionals (professionals i.e. SINTIA Murphy, GUEST SERVICES AGENT, lab, RT, psych nurse, social media director, molded goods inspector trimmer, teacher, juvenile probation officer, case management coordinator)? Give summary @ -No Was smoking cessation discussed for >3mins.? @ -No Was critical care preformed (if so, how long)? @ -No Were there social determinants of health that impacted care today? How? (Homelessness, low income, unemployed, alcoholism, drug addiction, transportation, low edu. Level, literacy, decrease access to med. care, [facility], rehab)? @ -No Was there de-escalation of care discussed even if they declined (Discuss DNR or withdrawal of care, Hospice)? DNR status @ -No What co-morbidities impacted this encounter? (DM, HTN, Smoking, COPD, CAD, Cancer, CVA, ARF, Chemo, Hep., AIDS, mental health diagnosis, sleep apnea, morbid obesity)? @ -None Was patient admitted / discharged? Hospital course, mention meds given and route, prescriptions, significant lab abnormalities, going to OR and other pertinent info. @ -Discharged, 84-year-old male presenting with 4 days of bilateral redness and increased discharge from the eyes. Upon examination there were yellow exudates draining from the eyes bilaterally. Culture was taken from the left eye and patient was given first dose of ophthalmologic antibiotics. Send remaining antibiotics to the patient's pharmacy. Patient was discharged with clear instructions of warning signs for when to return to the ER and also recommended to follow-up with his production helper in the next week. Undiagnosed new problem with uncertain prognosis? @ -No Drug Therapy requiring intensive monitoring for toxicity (Heparin, Nitro, Insulin, Cardizem)? @ -No Were any procedures done? @ -No Diagnosis/symptom? @ -Bilateral bacterial conjunctivitis Acute, or Chronic, or Acute on Chronic? @ -Acute Uncomplicated (without systemic symptoms) or Complicated (systemic symptoms)? @ -Default Side effects of treatment? @ -No Exacerbation, Progression, or Severe Exacerbation? @ -No Poses a threat to life or bodily function? How? (Chest pain, [place], [place], pneumonia, PE, COPD, DKA, ARF, appy, cholecystitis, CVA, Diverticulitis, Homicidal, Suicidal, threat to staff... and all critical care pts) @ -No Disposition Clinical Impression: Acute bacterial conjunctivitis of both eyes Disposition: HOME SELF-CARE Instructions (If sedation given, give patient instructions): Eye Wash (Into the eye) Prescriptions: Ofloxacin 0.3% Ophth Soln [Ocuflox Ophth Soln] 1 - 2 drops BOTH EYES QID 7 Days #10 ml Is patient prescribed a controlled substance at d/c from ED?: No Referrals: Vaughn Bai MD [Primary Care Provider] - 1-2 days
[2024-09-03] MEDS: OFLOXACIN 0.3% OPHTH DROPS 5 ML BOTTLE BOTH EYES STA (00:22)
[2024-09-03 00:43] VITALS: BP 150/70; PULSE 80
== END 2024-09-03 00:27 | disposition home or self-care (01) ==
LOC: EC 22:15
DX: H10.33 Unspecified acute conjunctivitis, bilateral (principal)
CPT/HCPCS: 87070; 87205; 99283